=== PATIENT | female | born 1995 | race Caucasian/White ===

== ENCOUNTER → 2017-11-01 | Outpatient (CLI) | payer BC ==
[2016-05-17 16:21] VITALS: BMI 35.1
[~2017-11-01] MED LIST: Benzocaine 60 ML TP; DEPRESSION MED PO; DICY20TA70 PO; DOCU240C67 PO; FLUO-177 PO; IBUP800T37 PO; IRON18TA2 PO; Lanolin TP; PANT40TA65 PO; PREN1TAB50 PO; TUCKS TOP; VENL37.594 PO
== END ==
LOC: LAB 15:11
PROVIDERS: ATTEND Nurse Practitioner Pediatrics
DX: Z32.00 Encounter for pregnancy test, result unknown (principal)
CPT/HCPCS: 81025

== ENCOUNTER 2017-11-26 19:58 | Emergency (ER) | payer BC ==
[2016-05-17 16:21] VITALS: Ht 165.1 cm; Wt 104.8 kg
[~2017-11-26] VITALS: Ht 165.1 cm; Wt 104.8 kg
[2017-11-26 20:03] VITALS: BP 119/72
[2017-11-26] MEDS ORDERED: PREN-127 PO (20:05)
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
[2017-11-26] MEDS ORDERED: AMOX-559 PO (20:27)
== END 2017-11-26 20:45 | disposition home or self-care (01) ==
LOC: ER 20:11
DX: J32.0 Chronic maxillary sinusitis (principal)
CPT/HCPCS: 99281

== ENCOUNTER 2017-11-28 08:21 | Emergency (ER) | payer BC ==
[2016-05-17 16:21] VITALS: Ht 165.1 cm; Wt 104.8 kg
[~2017-11-28] VITALS: Ht 165.1 cm; Wt 104.8 kg
[~2017-11-28 08:21] MED LIST changes: +AMOX-559 PO; +PREN-127 PO
--- NOTE | 2017-11-28 08:36 | ER Report ---
History and Physical Time Seen By MD: 08:34 Hx. of Stated Complaint: BEING TREATED WITH AMOXICILLIN FOR SINUSITIS SINCE YESTERDAY. WOKE UP THIS AM WITH LEFT EYE AND CHEEK SWELLING. HPI/ROS CHIEF COMPLAINT: Left-sided facial swelling HISTORY OF PRESENT ILLNESS: Patient was seen in the emergency department yesterday started on Augmentin for a sinusitis. Patient is also approximately 11 weeks with no complications of at this time. This morning the patient woke up and noticed worsening swelling to the left side of the face. He is now also leaking some serous fluid to that area. Pain with leaning forward she denies any dental pain but does say it "hurts to chew on her left side" REVIEW OF SYSTEMS: ENT: left sided facal pain and erythema Respiratory: No cough, no dyspnea. Cardiovascular: No chest pain, no palpitations. Gastrointestinal: No vomiting, no abdominal pain. Musculoskeletal: No back pain. Allergies: Coded Allergies: cat dander (Verified Allergy, Unknown, 11/26/17) Home Meds Active Scripts Amoxicillin/Pot Clav 875-125 Mg Tab (AUGMENTIN 875-125 TABLET) 1 Each Tablet, 1 TAB PO Q12H for 10 Days, #20 TAB Prov:YURY WARREN MD 11/26/17 Reported Medications Vits W-Ca,Fe,Fa(<1MG) ( VITAMINS) 1 Each Tablet, 1 EACH PO DAILY, TAB 11/26/17 Discontinued Reported Medications Venlafaxine Hcl (EFFEXOR XR) 37.5 Mg Cap.er.24h, 37.5 MG PO QODAY 01/12/17 Fluoxetine Hcl (FLUOXETINE HCL) 20 Mg Capsule, 20 MG PO QDAY, CAPSULE 01/12/17 Discontinued Scripts Dicyclomine Hcl (DICYCLOMINE HCL) 20 Mg Tablet, 1 TAB PO ACHS, #60 TAB 1 Refill Prov:DANUTA DELGADO MD 04/04/17 Pantoprazole Sodium (PANTOPRAZOLE SODIUM) 40 Mg Tablet.dr, 1 TAB PO BID, #60 TAB 1 Refill Prov:DANUTA DELGADO MD 04/04/17 Past Medical/Surgical History Approximately 11 weeks Hx Smoking: Yes Smoking Status: Never Smoker Exposure to Second Hand Smoke?: No Hx Substance Use Disorder: No Hx Alcohol Use: No Constitutional Vital Sign - Last 24 Hours 11/28/17 08:25 Temp 98.3 Pulse 99 Resp 16 B/P (MAP) 130/95 Pulse Ox 96 O2 Delivery Room Air Physical Exam General Appearance: The patient is alert, has no immediate need for airway protection and no current signs of toxicity. Eyes: Pupils equal and round no injection. EOMI Face: swelling over the left maxillary sinus with overlying erythema and tenderness to palpation, small amount of honeycolored fluid leaking from center of erythema Sinus: frontal and right maxilla nontender; both right and left sinuses transiluminate. Nares: clear Respiratory: Chest is non tender, lungs are clear to auscultation. Cardiac: regular rate and rhythm Gastrointestinal: Abdomen is soft and non tender, no masses, bowel sounds normal. Musculoskeletal: Neck: Neck is supple and non tender. Medical Decision Making ED Course/Re-evaluation ED Course 11/28/2017 8:54:[address] Hood who is our in-house early childhood director. He suspects the patient does have a left maxillary sinusitis with overlying cellulitis. In addition to the Bactrim and Augmentin he recommends 1 g of Rocephin which we will give intramuscularly. He will further see the patient later this afternoon patient is instructed to follow-up his office at 1:45 PM for a 2:15 appointment. Decision to Disposition Date: Nov 28, 2017 Decision to Disposition Time: 08:55 Depart Departure Latest Vital Signs Vital Signs Date Time Temp Pulse Resp B/P (MAP) Pulse Ox O2 Delivery O2 Flow Rate FiO2 11/28/17 08:25 98.3 99 16 130/95 96 Room Air Impression: Primary Impression: Sinusitis, acute maxillary Condition: Improved Referrals: DYLON HOOD JR, MD Follow up today at 1:45 Patient Instructions: Sinusitis (ED) Additional Instructions: Follow up with Dr Hood at 1:45 PM today in his office Take all your antibiotics as directed. Problem Qualifiers Primary Impression: Sinusitis, acute maxillary Recurrence: non-recurrent Qualified Codes: J01.00 - Acute maxillary sinusitis, unspecified JERICHO SHARMA MD Nov 28, 2017 08:36
[2017-11-28] MEDS ORDERED: AMOX/CLAV 875 MG TAB PO ONE (08:50)
[2017-11-28] MEDS ORDERED: TRIMETH/SULFA DS 160-800MG TAB PO ONE (08:50)
[2017-11-28] MEDS ORDERED: cefTRIAXone 1 GM VIAL IM ONE (09:00)
[2017-11-28] MEDS ORDERED: LIDOCAINE 1% MDV 200 MG/20 ML INJ ONE (09:00)
[2017-11-28 09:21] VITALS: BP 115/71
[2017-11-28] MEDS ORDERED: SULF-198 PO (16:55)
== END 2017-11-28 09:19 | disposition home or self-care (01) ==
LOC: ER 08:35
DX: O26.892 Other specified pregnancy related conditions, second trimester (principal); Z3A.11 11 weeks gestation of pregnancy; J01.00 Acute maxillary sinusitis, unspecified
CPT/HCPCS: 96372; 99282; J0696; J2001

== ENCOUNTER 2017-11-29 08:30 | Inpatient (IN) | payer BC, OTHER ==
[~2017-11-29] VITALS: Ht 165.1 cm; Wt 114.3 kg
[~2017-11-29 08:30] MED LIST changes: +SULF-198 PO
[2017-11-29] MEDS ORDERED: NS(*) 0.9% 1000 ML BAG 1,000 ML IV ONE (08:32)
[2017-11-29] MEDS ORDERED: AMPICILLIN/SULBACT (*) 3 GM VL 3 GM in NS(*) 0.9% 100 ML BAG 100 ML IVPB ONE (08:35)
[2017-11-29 09:00] LABS: PLATELET COUNT, AUTOMATED 222 K/uL (150-450)
[2017-11-29] MEDS ORDERED: DIPHTH/TETANUS/ACEL. PERTUSSIS IM ONLY ONE (09:00)
--- NOTE | 2017-11-29 10:21 | RADIOLOGY IMAGING REPORT ---
FACILITY: [facility] [place] PATIENT NAME: Brigitte Moss : 1995 MR: [id number] V: [id number] EXAM DATE: ORDERING PHYSICIAN: JERICHO SHARMA TECHNOLOGIST: Location: [facility] Patient: Brigitte Moss : 1995 Visit/Account:[id number] Date of Sevice: 11/29/2017 EXAMINATION: CT of the Paranasal Sinuses HISTORY: Worsening sinusitis. TECHNIQUE: Contiguous axial images were obtained through the paranasal sinuses without intravenous c ontrast administration. Coronal and sagittal reformatted images were obtained from the axial source d jose ramon. One of the following dose optimization techniques was utilized in the performance of this exam: Autom ated exposure control; adjustment of the mA and/or kV according to the patient's size; or use of an i terative reconstruction technique. Specific details can be referenced in the facility's radiology C T exam operational policy. COMPARISON: None. FINDINGS: Maxillary sinuses: Mild mucosal thickening in the bilateral maxillary sinuses. Otherwise negative. Frontal sinuses: Negative. Ethmoid air cells: Negative. Sphenoid sinuses: Dominant right sphenoid sinus. Mild mucosal thickening in the left sphenoid sinus. Ostiomeatal units: Patent. Nasal septum / nasal cavity: Rightward nasal septal deviation. Orbits: Negative. Visualized intracranial contents/soft tissues: Negative. TMJs: Negative. IMPRESSION: 1. Mild mucosal thickening in the maxillary sinuses and left sphenoid sinus. The paranasal sinuses ar e otherwise clear. 2. Rightward nasal septal deviation. Report Dictated By: Benson Joseph MD at 11/29/2017 10:13 AM Report E-Signed By: Benson Joseph MD at 11/29/2017 10:17 AM WSN:[email or web address]
--- NOTE | 2017-11-29 10:32 | ER Report ---
History and Physical Time Seen By MD: 09:00 Hx. of Stated Complaint: infection in face not improving with antibiotics HPI/ROS HPI/ROS CHIEF COMPLAINT: Left-sided facial swelling HISTORY OF PRESENT ILLNESS: Patient was seen in the emergency department yesterday started on Bactrim in addition to augmentin for a sinusitis and left facial cellulitis. Patient is also approximately 11 weeks with no complications of at this time. This morning the patient woke up and noticed again worsening swelling to the left side of the face. She was followed in ENT office by Dr. Hood who referred her to the emergency department for worsening facial cellulitis. She continues to have pain to the left maxillary sinus with leaning forward she denies any dental pain but does say it "hurts to chew on her left side" REVIEW OF SYSTEMS: ENT: left sided facal pain and erythema Respiratory: No cough, no dyspnea. Cardiovascular: No chest pain, no palpitations. Gastrointestinal: No vomiting, no abdominal pain. Musculoskeletal: No back pain. Allergies: Coded Allergies: cat dander (Verified Allergy, Unknown, 11/29/17) Home Meds Active Scripts Sulfamethoxazole/Trimet 800-160 Mg Tab (BACTRIM DS TABLET) 1 Each Tablet, 1 TAB PO Q12H for 10 Days, #20 TAB Prov:DYLON HOOD JR, MD 11/28/17 Amoxicillin/Pot Clav 875-125 Mg Tab (AUGMENTIN 875-125 TABLET) 1 Each Tablet, 1 TAB PO Q12H for 10 Days, #20 TAB Prov:YURY WARREN MD 11/26/17 Reported Medications Vits W-Ca,Fe,Fa(<1MG) ( VITAMINS) 1 Each Tablet, 1 EACH PO DAILY, TAB 11/26/17 Discontinued Reported Medications Venlafaxine Hcl (EFFEXOR XR) 37.5 Mg Cap.er.24h, 37.5 MG PO QODAY 01/12/17 Fluoxetine Hcl (FLUOXETINE HCL) 20 Mg Capsule, 20 MG PO QDAY, CAPSULE 01/12/17 Discontinued Scripts Dicyclomine Hcl (DICYCLOMINE HCL) 20 Mg Tablet, 1 TAB PO ACHS, #60 TAB 1 Refill Prov:DANUTA DELGADO MD 04/04/17 Pantoprazole Sodium (PANTOPRAZOLE SODIUM) 40 Mg Tablet.dr, 1 TAB PO BID, #60 TAB 1 Refill Prov:DANUTA DELGADO MD 04/04/17 Past Medical/Surgical History 11 weeks Hx Smoking: Yes Smoking Status: Never Smoker Exposure to Second Hand Smoke?: No Hx Substance Use Disorder: No Hx Alcohol Use: No Constitutional Vital Sign - Last 24 Hours 11/29/17 11/29/17 11/29/17 08:33 08:36 09:00 Temp 98.2 Pulse 94 90 Resp 20 10 B/P (MAP) 123/67 (85) 123/67 Pulse Ox 95 97 O2 Delivery Room Air Intake and Output 11/29/17 11/29/17 11/30/17 15:00 23:00 07:00 Intake Total 100 ml Balance 100 ml Physical Exam Physical Exam General Appearance: The patient is alert, has no immediate need for airway protection and no current signs of toxicity. Eyes: Pupils equal and round no injection. EOMI Face: Worsening of swelling over the left maxillary sinus with overlying erythema and tenderness to palpation, small amount of honeycolored fluid leaking from center of erythema Sinus: Tenderness to palpation of the left maxillary sinus Nares: clear Respiratory: Chest is non tender, lungs are clear to auscultation. Cardiac: regular rate and rhythm Gastrointestinal: Abdomen is soft and non tender, no masses, bowel sounds normal. Musculoskeletal: Neck: Neck is supple Medical Decision Making Data Points Result Diagram: 11/29/17 0845 11/29/17 0845 Laboratory Hematology Test 11/29/17 08:45 11/29/17 10:12 Red Blood Count 4.39 M/uL (4.17-5.56) Mean Corpuscular Volume 85.6 fL (80.0-96.0) Mean Corpuscular Hemoglobin 30.0 pg (26.0-33.0) Mean Corpuscular Hemoglobin Concent 35.1 g/dL (32.0-36.0) Red Cell Distribution Width 13.3 % (11.5-14.5) Mean Platelet Volume 8.4 fL (7.2-11.1) Neutrophils (%) (Auto) 62.2 % (39.4-72.5) Lymphocytes (%) (Auto) 23.7 % (17.6-49.6) Monocytes (%) (Auto) 11.4 % (4.1-12.4) Eosinophils (%) (Auto) 2.2 % (0.4-6.7) Basophils (%) (Auto) 0.5 % (0.3-1.4) Nucleated RBC Relative Count (auto) 0.2 /100WBC Neutrophils # (Auto) 2.9 K/uL (2.0-7.4) Lymphocytes # (Auto) 1.1 K/uL (1.3-3.6) Monocytes # (Auto) 0.5 K/uL (0.3-1.0) Eosinophils # (Auto) 0.1 K/uL (0.0-0.5) Basophils # (Auto) 0.0 K/uL (0.0-0.1) Nucleated RBC Absolute Count (auto) 0.01 K/uL Sodium Level 134 mmol/L (137-145) Potassium Level 3.9 mmol/L (3.5-5.0) Chloride Level 105 mmol/L (98-107) Carbon Dioxide Level 17 mmol/L (22-31) Blood Urea Nitrogen 3 mg/dl (7-18) Creatinine 0.60 mg/dl (0.52-1.04) Glomerular Filtration Rate Calc > 60.0 Random Glucose 96 mg/dl (75-110) Calcium Level 9.1 mg/dl (8.4-10.2) Total Bilirubin 0.5 mg/dl (0.2-1.3) Aspartate Amino Transf (AST/SGOT) 17 U/L (0-35) Alanine Aminotransferase (ALT/SGPT) 28 U/L (0-56) Alkaline Phosphatase 82 U/L (0-126) C-Reactive Protein 5.0 mg/dl (<1.0) Total Protein 7.1 gm/dl (6.3-8.2) Albumin 4.0 g/dl (3.5-5.0) Urine Color Yellow Urine Clarity Clear Urine pH 6.0 pH (4.8-9.5) Urine Specific Charlton 1.025 Urine Protein Negative mg/dL (NEGATIVE) Urine Glucose (UA) Negative mg/dL (NEGATIVE) Urine Ketones 80 mg/dL (NEGATIVE) Urine Blood Negative (NEGATIVE) Urine Nitrite Negative (NEGATIVE) Urine Bilirubin Negative (NEGATIVE) Urine Urobilinogen Negative mg/dL (0.2-1.9) Urine Leukocyte Esterase Negative (NEGATIVE) Urine RBC None /HPF (0-2/HPF) Urine WBC 1 /HPF (0-5/HPF) Urine Squamous Epithelial Cells Many /LPF (</=FEW) Urine Bacteria Negative /HPF (NONE-FEW) Urine Mucus Few /HPF (NONE-FEW) Chemistry Test 11/29/17 08:45 11/29/17 10:12 White Blood Count 4.6 k/uL (4.5-11.0) Red Blood Count 4.39 M/uL (4.17-5.56) Hemoglobin 13.2 g/dL (12.0-16.0) Hematocrit 37.6 % (34.0-47.0) Mean Corpuscular Volume 85.6 fL (80.0-96.0) Mean Corpuscular Hemoglobin 30.0 pg (26.0-33.0) Mean Corpuscular Hemoglobin Concent 35.1 g/dL (32.0-36.0) Red Cell Distribution Width 13.3 % (11.5-14.5) Platelet Count 222 K/uL (150-450) Mean Platelet Volume 8.4 fL (7.2-11.1) Neutrophils (%) (Auto) 62.2 % (39.4-72.5) Lymphocytes (%) (Auto) 23.7 % (17.6-49.6) Monocytes (%) (Auto) 11.4 % (4.1-12.4) Eosinophils (%) (Auto) 2.2 % (0.4-6.7) Basophils (%) (Auto) 0.5 % (0.3-1.4) Nucleated RBC Relative Count (auto) 0.2 /100WBC Neutrophils # (Auto) 2.9 K/uL (2.0-7.4) Lymphocytes # (Auto) 1.1 K/uL (1.3-3.6) Monocytes # (Auto) 0.5 K/uL (0.3-1.0) Eosinophils # (Auto) 0.1 K/uL (0.0-0.5) Basophils # (Auto) 0.0 K/uL (0.0-0.1) Nucleated RBC Absolute Count (auto) 0.01 K/uL Glomerular Filtration Rate Calc > 60.0 Calcium Level 9.1 mg/dl (8.4-10.2) Total Bilirubin 0.5 mg/dl (0.2-1.3) Aspartate Amino Transf (AST/SGOT) 17 U/L (0-35) Alanine Aminotransferase (ALT/SGPT) 28 U/L (0-56) Alkaline Phosphatase 82 U/L (0-126) C-Reactive Protein 5.0 mg/dl (<1.0) Total Protein 7.1 gm/dl (6.3-8.2) Albumin 4.0 g/dl (3.5-5.0) Urine Color Yellow Urine Clarity Clear Urine pH 6.0 pH (4.8-9.5) Urine Specific Charlton 1.025 Urine Protein Negative mg/dL (NEGATIVE) Urine Glucose (UA) Negative mg/dL (NEGATIVE) Urine Ketones 80 mg/dL (NEGATIVE) Urine Blood Negative (NEGATIVE) Urine Nitrite Negative (NEGATIVE) Urine Bilirubin Negative (NEGATIVE) Urine Urobilinogen Negative mg/dL (0.2-1.9) Urine Leukocyte Esterase Negative (NEGATIVE) Urine RBC None /HPF (0-2/HPF) Urine WBC 1 /HPF (0-5/HPF) Urine Squamous Epithelial Cells Many /LPF (</=FEW) Urine Bacteria Negative /HPF (NONE-FEW) Urine Mucus Few /HPF (NONE-FEW) Urinalysis Test 11/29/17 10:12 Urine Color Yellow Urine Clarity Clear Urine pH 6.0 pH (4.8-9.5) Urine Specific Charlton 1.025 Urine Protein Negative mg/dL (NEGATIVE) Urine Glucose (UA) Negative mg/dL (NEGATIVE) Urine Ketones 80 mg/dL (NEGATIVE) Urine Blood Negative (NEGATIVE) Urine Nitrite Negative (NEGATIVE) Urine Bilirubin Negative (NEGATIVE) Urine Urobilinogen Negative mg/dL (0.2-1.9) Urine Leukocyte Esterase Negative (NEGATIVE) Urine RBC None /HPF (0-2/HPF) Urine WBC 1 /HPF (0-5/HPF) Urine Squamous Epithelial Cells Many /LPF (</=FEW) Urine Bacteria Negative /HPF (NONE-FEW) Urine Mucus Few /HPF (NONE-FEW) Microbiology Microbiology Date/Time Source Procedure Growth Status 11/29/17 09:10 Blood Peripheral Draw Blood Culture - Preliminary NO GROWTH SO FAR, SET LATE. REINCUBATED Resulted 11/29/17 08:45 Blood Peripheral Draw Blood Culture - Preliminary NO GROWTH SO FAR, SET LATE. REINCUBATED Resulted EKG/Imaging Imaging FACILITY: [facility] PATIENT NAME: Brigitte Moss : 1995 MR: [id number] V: [id number] EXAM DATE: ORDERING PHYSICIAN: JERICHO SHARMA TECHNOLOGIST: Location: [facility] [place] Patient: Brigitte Moss : 1995 Visit/Account:[id number] Date of Sevice: 11/29/2017 EXAMINATION: CT of the Paranasal Sinuses HISTORY: Worsening sinusitis. TECHNIQUE: Contiguous axial images were obtained through the paranasal sinuses without intravenous contrast administration. Coronal and sagittal reformatted images were obtained from the axial source data. One of the following dose optimization techniques was utilized in the performance of this exam: Automated exposure control; adjustment of the mA and/ or kV according to the patient's size; or use of an iterative reconstruction technique. Specific details can be referenced in the facility's radiology CT exam operational policy. COMPARISON: None. FINDINGS: Maxillary sinuses: Mild mucosal thickening in the bilateral maxillary sinuses. Otherwise negative. Frontal sinuses: Negative. Ethmoid air cells: Negative. Sphenoid sinuses: Dominant right sphenoid sinus. Mild mucosal thickening in the left sphenoid sinus. Ostiomeatal units: Patent. Nasal septum / nasal cavity: Rightward nasal septal deviation. Orbits: Negative. Visualized intracranial contents/soft tissues: Negative. TMJs: Negative. IMPRESSION: 1. Mild mucosal thickening in the maxillary sinuses and left sphenoid sinus. The paranasal sinuses are otherwise clear. 2. Rightward nasal septal deviation. Report Dictated By: Benson Joseph MD at 11/29/2017 10:13 AM Report E-Signed By: Benson Joseph MD at 11/29/2017 10:17 AM WSN:[id number] ED Course/Re-evaluation Clinical Indication for ER IV: Hydration, IV Access ED Course 11/29/2017 11:03:22 am patient with worsening facial cellulitis seen by Dr. Dylon Hood and sent to the emergency department for admission. I agree with worsening clinical condition. Because of the worsening condition I decided to perform a CT scan of the sinuses to look for any deep involvement or possible retro-orbital infection. CT scan just showed facial cellulitis. Plan at this time will be admission to medicine for IV antibiotics. Decision to Disposition Date: Nov 29, 2017 Decision to Disposition Time: 11:05 Depart Departure Latest Vital Signs Vital Signs Date Time Temp Pulse Resp B/P (MAP) Pulse Ox O2 Delivery O2 Flow Rate FiO2 11/29/17 09:00 90 10 97 11/29/17 08:36 98.2 123/67 Room Air Impression: Primary Impression: Facial cellulitis Condition: Condition Unchanged Disposition: Admitted from ER (To Nadine Guevara) JERICHO SHARMA MD Nov 29, 2017 10:32
[2017-11-29 11:52] VITALS: BP 116/65
[2017-11-29] MEDS ORDERED: ACETAMINOPHEN 325 MG TAB PO PRN (12:25)
--- NOTE | 2017-11-29 13:09 | History & Physical ---
History of Present Illness Chief Complaint Facial pain and swelling History of Present Illness 22yo female with PMHx significant for ~12 week who had onset of swelling, redness, pain over nose approximately 5 days ago. It was initially associated with an infected nose piercing on the right. She removed the piercing , but the symptoms began to spread over her nose and left face. She did not appreciate any fevers or chills. She has had some nausea with her and this has been unchanged. She denied any other GI or symptoms. She was evaluated in the ER and placed on Augmentin and subsequently had Bactrim added. She was also referred to Dr. Hood (ENT), who now felt she would probably require IV antibiotics. She was re-evaluated in the ER. CT scan showed facial swelling, but no orbit or significant sinus involvement. She was recommended for admission. History Problems: (1) History of cholecystectomy Status: Resolved (2) History of tonsillectomy Status: Resolved (3) Status: Acute Comment: approximately 12 weeks Home Meds Active Scripts Sulfamethoxazole/Trimet 800-160 Mg Tab (BACTRIM DS TABLET) 1 Each Tablet, 1 TAB PO Q12H for 10 Days, #20 TAB Prov:DYLON HOOD JR, MD 11/28/17 Amoxicillin/Pot Clav 875-125 Mg Tab (AUGMENTIN 875-125 TABLET) 1 Each Tablet, 1 TAB PO Q12H for 10 Days, #20 TAB Prov:YURY WARREN MD 11/26/17 Reported Medications Vits W-Ca,Fe,Fa(<1MG) ( VITAMINS) 1 Each Tablet, 1 EACH PO DAILY, TAB 11/26/17 Discontinued Reported Medications Venlafaxine Hcl (EFFEXOR XR) 37.5 Mg Cap.er.24h, 37.5 MG PO QODAY 01/12/17 Fluoxetine Hcl (FLUOXETINE HCL) 20 Mg Capsule, 20 MG PO QDAY, CAPSULE 01/12/17 Discontinued Scripts Dicyclomine Hcl (DICYCLOMINE HCL) 20 Mg Tablet, 1 TAB PO ACHS, #60 TAB 1 Refill Prov:DANUTA DELGADO MD 04/04/17 Pantoprazole Sodium (PANTOPRAZOLE SODIUM) 40 Mg Tablet.dr, 1 TAB PO BID, #60 TAB 1 Refill Prov:DANUTA DELGADO MD 04/04/17 Allergies: Coded Allergies: cat dander (Verified Allergy, Unknown, 11/29/17) Patient History: Patient reports no known family medical history. Hx Smoking: Yes Smoking Status: Never Smoker Exposure to Second Hand Smoke?: No Caffeine Intake: Soda Caffeine/Cups Per Day: 1+/DAY Hx Alcohol Use: No Hx Substance Use Disorder: No Social Drug Use: Never Review of Systems Constitutional: No Fever, No Chills, No Night Sweats Neurological: No Syncope, No Confusion, No Weakness Eyes: No Vision Change, No Loss of Vision ENT: Sinus Congestion, No Hearing Loss Cardiovascular: No Chest Pain, No Palpitations Respiratory: No Shortness of Breath, No Cough, No Wheezing Gastrointestinal: Nausea, No Diarrhea, No Constipation, No Hematemesis, No Hematochezia, No Melena, No Abdominal Pain Genitourinary: No Dysuria, No Hematuria, No Urinary Incontinence Musculoskeletal: No Pain, No Sprain, No Impaired Mobility Psychiatric: No Depression, No Anxiety Exam Vital Signs Vital Signs Date Time Temp Pulse Resp B/P (MAP) Pulse Ox O2 Delivery O2 Flow Rate FiO2 11/29/17 11:52 97.6 97 16 116/65 (82) 97 Room Air General Appearance: Alert, Awake Neuro: No Gross deficits Eyes: PERRLA ENT: Other (swelling/erythema on left face extending from supraorbital ridge to near left lip/laterally over malar eminence with area of apparent excoriation over middle portion) Neck: No Masses, Other (no adenopathy) Cardiovascular: Regular Rate and Rhythm, No Edema, No JVD Respiratory: Clear to Auscultation Chest: No Tenderness GI: Abd Soft and Non-Tender : No CVA Tenderness Lymph: No Adenopathy Extremities: Warm, Perfused Psych: Alert & Oriented X3 Medical Decision Making Data Points Result Diagram: 11/29/17 0845 11/29/17 0845 Item Value Date Time Albumin 4.0 g/dl 11/29/17 0845 Total Protein 7.1 gm/dl 11/29/17 0845 C-Reactive Protein 5.0 mg/dl H 11/29/17 0845 Alkaline Phosphatase 82 U/L 11/29/17 0845 Alanine Aminotransferase (ALT/SGPT) 28 U/L 11/29/17 0845 Aspartate Amino Transf (AST/SGOT) 17 U/L 11/29/17 0845 Total Bilirubin 0.5 mg/dl 11/29/17 0845 Calcium Level 9.1 mg/dl 11/29/17 0845 Urine Color Yellow 11/29/17 1012 Urine Clarity Clear 11/29/17 1012 Urine pH 6.0 pH 11/29/17 1012 Urine Specific [place] 1.025 11/29/17 1012 Urine Protein Negative mg/dL 11/29/17 1012 Urine Glucose (UA) Negative mg/dL 11/29/17 1012 Urine Ketones 80 mg/dL H 11/29/17 1012 Urine Blood Negative 11/29/17 1012 Urine Nitrite Negative 11/29/17 1012 Urine Bilirubin Negative 11/29/17 1012 Urine Urobilinogen Negative mg/dL 11/29/17 1012 Urine Leukocyte Esterase Negative 11/29/17 1012 Urine RBC None /HPF 11/29/17 1012 Urine WBC 1 /HPF 11/29/17 1012 Urine Squamous Epithelial Cells Many /LPF H 11/29/17 1012 Urine Bacteria Negative /HPF 11/29/17 1012 Urine Mucus Few /HPF 11/29/17 1012 Urine HCG, Qualitative Positive 11/01/17 1520 EKG / Imaging Imaging PATIENT NAME: Brigitte Moss : 1995 MR: [id number] V: [id number] EXAM DATE: ORDERING PHYSICIAN: JERICHO SHARMA TECHNOLOGIST: Location: [facility] Patient: Brigitte Moss : 1995 Visit/Account:[id number] Date of Sevice: 11/29/2017 EXAMINATION: CT of the Paranasal Sinuses HISTORY: Worsening sinusitis. TECHNIQUE: Contiguous axial images were obtained through the paranasal sinuses without intravenous contrast administration. Coronal and sagittal reformatted images were obtained from the axial source data. One of the following dose optimization techniques was utilized in the performance of this exam: Automated exposure control; adjustment of the mA and/ or kV according to the patient's size; or use of an iterative reconstruction technique. Specific details can be referenced in the facility's radiology CT exam operational policy. COMPARISON: None. FINDINGS: Maxillary sinuses: Mild mucosal thickening in the bilateral maxillary sinuses. Otherwise negative. Frontal sinuses: Negative. Ethmoid air cells: Negative. Sphenoid sinuses: Dominant right sphenoid sinus. Mild mucosal thickening in the left sphenoid sinus. Ostiomeatal units: Patent. Nasal septum / nasal cavity: Rightward nasal septal deviation. Orbits: Negative. Visualized intracranial contents/soft tissues: Negative. TMJs: Negative. IMPRESSION: 1. Mild mucosal thickening in the maxillary sinuses and left sphenoid sinus. The paranasal sinuses are otherwise clear. 2. Rightward nasal septal deviation. Report Dictated By: Benson Joseph MD at 11/29/2017 10:13 AM Report E-Signed By: Benson Joseph MD at 11/29/2017 10:17 AM WSN:[id number] Assessment and Plan Problems: (1) Facial cellulitis Status: Acute Assessment & Plan: It appears she has left facial cellulitis that has not responded to outpatient oral antibiotics. Will admit and place on IV Unasyn 3gm IV q6hrs. Cultures of blood have been obtained in the ER. Will check nasal swab to see if she is an MRSA carrier. If so, would add vancomycin (or if any other complicating factors). Watch closely. (2) Status: Acute Assessment & Plan: 12 weeks. Will need to review any medications for safety. Time Spent on Plan of Care: > 30 min Copies to: MICHAEL MICHELLE MD Venous Thromboembolism Antithrombotics Is Pt On Any Antithrombotics?: No (REI hose and ambulation) Exam Sepsis Risk: No Definite Risk Problem Qualifiers (1) : Weeks of gestation: 12 weeks Qualified Codes: Z3A.12 - 12 weeks gestation of YAZMIN GARCIA MD Nov 29, 2017 13:09
[2017-11-29] MEDS: NS(*) 0.9% 1000 ML BAG 1,000 ML IV PRN (13:12)
[2017-11-29 14:27] VITALS: BP 112/64
[2017-11-29] MEDS: AMPICILLIN/SULBACT (*) 3 GM VL 3 GM in NS(*) 0.9% 100 ML BAG 100 ML IVPB SCH ×2 (14:43→21:21)
[2017-11-29] MEDS ORDERED: PYRIDOXINE HCL 50 MG TAB PO ONE (17:45)
[2017-11-29] MEDS: DOXYLAMINE SUCCINATE 25 MG TAB PO PRN (18:09)
[2017-11-29 18:49] VITALS: BP 111/64
[2017-11-30] MEDS: AMPICILLIN/SULBACT (*) 3 GM VL 3 GM in NS(*) 0.9% 100 ML BAG 100 ML IVPB SCH ×4 (03:46→21:17)
[2017-11-30 04:34] VITALS: BP 124/53
[2017-11-30 06:05] LABS: PLATELET COUNT, AUTOMATED 212 K/uL (150-450)
[2017-11-30 08:23] VITALS: BP 113/71
[2017-11-30] MEDS: PYRIDOXINE HCL 50 MG TAB PO SCH (08:29)
[2017-11-30] MEDS: DOXYLAMINE SUCCINATE 25 MG TAB PO PRN (08:32)
[2017-11-30 08:48] VITALS: Ht 165.1 cm; Wt 114.3 kg
[2017-11-30] MEDS: NS(*) 0.9% 1000 ML BAG 1,000 ML IV PRN (10:55)
[2017-11-30 12:13] VITALS: BP 128/54
--- NOTE | 2017-11-30 13:40 | Hospitalist Progress Note ---
Subjective Progress Notes Subjective Ms. Moss is a 22yo female with PMHx significant for ~12 week who had onset of swelling, redness, pain over nose approximately 5 days ago. It was initially associated with an infected nose piercing on the right. She removed the piercing, but the symptoms began to spread over her nose and left face. She did not appreciate any fevers or chills. She has had some nausea with her and this has been unchanged. She denied any other GI or symptoms. She was evaluated in the ER and placed on Augmentin and subsequently had Bactrim added. She was also referred to Dr. Francis (ENT), who now felt she would probably require IV antibiotics. She was re-evaluated in the ER. CT scan showed facial swelling, but no orbit or significant sinus involvement. She was recommended for admission. 11/30: Patient is currently on IV Unasyn and responding better. Her facial redness and swelling has been improving since her admission. She is afebrile, hemodynamically and medically stable. Her nasa swab is still pending. Patient Complains of: Neurological: No: Confusion, Weakness, Dizziness Cardiovascular: No: Chest Pain, Palpitations Respiratory: No: Cough, Congestion, Shortness of Breath, Wheezing Gastrointestinal: No Nausea, No Vomiting Genitourinary: No Dysuria, No Hematuria Musculoskeletal: No: Pain, Sprain, Strain, Impaired Mobility Physical Exam Vital Signs Date Time Temp Pulse Resp B/P (MAP) Pulse Ox O2 Delivery O2 Flow Rate FiO2 11/30/17 12:13 98.6 77 16 128/54 (78) 98 Room Air Intake and Output 12/01/17 07:00 Intake Total 836 ml Balance 836 ml Intake Oral 600 ml IV Total 236 ml # Voids 1 General Appearance: Alert, Awake, No Acute Distress, Afebrile Neuro: No Gross deficits Eyes: PERRLA ENT: Normal, Other (Less facial edema and erythema ) Neck: No Masses Respiratory: No Respiratory Distress Integumentary: Skin Intact without Lesion / Mass Psych: Alert & Oriented X3, Appropriate Mood & Affect Result Diagram: 11/30/1752011/30/17520 Assessment and Plan Problems: (1) Facial cellulitis Status: Acute Assessment & Plan: It appears she has left facial cellulitis that has not responded to outpatient oral antibiotics. Will admit and place on IV Unasyn 3gm IV q6hrs. Cultures of blood have been obtained in the ER. Will check nasal swab to see if she is an MRSA carrier. If so, would add vancomycin (or if any other complicating factors). Watch closely. 2/1: She is responding to Unasyn, I will continue her Unasyn dose and check her nasal CX/S (2) Status: Acute Assessment & Plan: 12 weeks. Will need to review any medications for safety. 2/1: She is stable from point of view. No complaint of N/V etc. Time Spent on Plan of Care: < 30 min Copies to: MICHAEL MICHELLE MD Exam Sepsis Risk: No Definite Risk Problem Qualifiers (1) : Weeks of gestation: 12 weeks Qualified Codes: Z3A.12 - 12 weeks gestation of JM SILVA MD Nov 30, 2017 13:40
[2017-11-30 14:37] VITALS: BP 105/57
[2017-11-30] MEDS: PROCHLORPERAZINE MAL 5 MG TAB PO PRN (17:20)
[2017-11-30 19:16] VITALS: BP 122/71
[2017-11-30 23:43] VITALS: BP 129/48
[2017-12-01] MEDS: AMPICILLIN/SULBACT (*) 3 GM VL 3 GM in NS(*) 0.9% 100 ML BAG 100 ML IVPB SCH ×4 (03:05→20:29)
[2017-12-01 03:53] VITALS: BP 121/51
[2017-12-01] MEDS: PYRIDOXINE HCL 50 MG TAB PO SCH (09:28)
--- NOTE | 2017-12-01 14:09 | Hospitalist Progress Note ---
Subjective Progress Notes Subjective Ms. Moss is a 22yo female with PMHx significant for ~12 week who had onset of swelling, redness, pain over nose approximately 5 days ago. It was initially associated with an infected nose piercing on the right. She removed the piercing, but the symptoms began to spread over her nose and left face. She did not appreciate any fevers or chills. She has had some nausea with her and this has been unchanged. She denied any other GI or symptoms. She was evaluated in the ER and placed on Augmentin and subsequently had Bactrim added. She was also referred to Dr. Francis (ENT), who now felt she would probably require IV antibiotics. She was re-evaluated in the ER. CT scan showed facial swelling, but no orbit or significant sinus involvement. She was recommended for admission. 2: Patient is currently on IV Unasyn and responding better. Her facial redness and swelling has been improving since her admission. She is afebrile, hemodynamically and medically stable. Her nasa swab is still pending. 12/01: Patient is feeling better today. She is afebrile, hemodynamically and medically stable. She is on IV Unasyn for 48hours. She denies any complaint of facial asymmetry, visual changes etc. Patient Complains of: Neurological: No: Confusion, Weakness, Dizziness, Slurred Speech Cardiovascular: No: Chest Pain, Palpitations Respiratory: No: Cough, Shortness of Breath Gastrointestinal: No Nausea, No Vomiting Genitourinary: No Dysuria, No Hematuria Musculoskeletal: No: Pain, Sprain, Strain Physical Exam Vital Signs Date Time Temp Pulse Resp B/P (MAP) Pulse Ox O2 Delivery O2 Flow Rate FiO2 12/01/17 08:08 98.7 75 16 95 Room Air 12/01/17 03:53 121/51 (74) Intake and Output 12/02/17 07:00 Intake Total 400 ml Balance 400 ml Intake Oral 400 ml # Voids 1 General Appearance: Alert, Awake, No Acute Distress, Afebrile Neuro: No Gross deficits Eyes: PERRLA ENT: Normal, Other (L-sided facial edema and erythema has been significantly improved.) Neck: No Masses Cardiovascular: Regular Rate and Rhythm Respiratory: No Respiratory Distress GI: Soft and Non-Tender Extremities: Soft and Non Tender Integumentary: Skin Intact without Lesion / Mass Psych: Alert & Oriented X3, Appropriate Mood & Affect Result Diagram: 11/30/1752011/30/17520 Assessment and Plan Problems: (1) Facial cellulitis Status: Acute Assessment & Plan: It appears she has left facial cellulitis that has not responded to outpatient oral antibiotics. Will admit and place on IV Unasyn 3gm IV q6hrs. Cultures of blood have been obtained in the ER. Will check nasal swab to see if she is an MRSA carrier. If so, would add vancomycin (or if any other complicating factors). Watch closely. 2: She is responding to Unasyn, I will continue her Unasyn dose and check her nasal CX/S 2: I will continue her IV Unasyn for at least 72 hours and then change to Augmentin 875mg po bid for 11 days to complete 14 days course. (2) Status: Acute Assessment & Plan: 12 weeks. Will need to review any medications for safety. 2: She is stable from point of view. No complaint of N/V etc. 22: She is stable Central Venous Access Medical Necessity for Access: IV Access, Medication Administration Condition stable Time Spent on Plan of Care: < 30 min Copies to: MICHAEL MICHELLE MD Exam Sepsis Risk: No Definite Risk Problem Qualifiers (1) : Weeks of gestation: 12 weeks Qualified Codes: Z3A.12 - 12 weeks gestation of MJ SILVA MD Dec 01, 2017 14:09
[2017-12-01] MEDS ORDERED: NS(*) 0.9% 500 ML BAG 500 ML ONE (15:25)
--- NOTE | 2017-12-01 16:11 | ENT Progress Note ---
Subjective Progress Notes Subjective Patient reports she is improving on the IV abx. Had some straw colored fluid from her left cheek this morning. No new concerns. Physical Exam Vital Signs Date Time Temp Pulse Resp B/P (MAP) Pulse Ox O2 Delivery O2 Flow Rate FiO2 12/01/17 08:08 98.7 75 16 95 Room Air 12/01/17 03:53 121/51 (74) Intake and Output 12/02/17 07:00 Intake Total 400 ml Balance 400 ml Intake Oral 400 ml # Voids 1 General Appearance: Alert, Awake, No Acute Distress Neuro: No Gross deficits Eyes: Other (EOMI, sclerae white, conjunctivae pink) ENT: Other (decreased left cheek edema, symmetrical erythema with contralateral side, 5 mm eschar right cheek, no fluctuance, no purulence expressed) Result Diagram: 11/30/1752011/30/17520 Assessment and Plan Problems: (1) Facial cellulitis Status: Acute Assessment & Plan: Patient responding nicely to IV unasyn. I agree with plan to discharge home on po Augmentin. I am happy to see her in follow up in the office on Monday. My office will call her to schedule. Central Venous Access Medical Necessity for Access: IV Access, Medication Administration Time Spent: < 30 min Exam Sepsis Risk: No Definite Risk ERWIN BHATT,DYLON Carson MD Dec 01, 2017 16:11
[2017-12-01 16:27] VITALS: BP 113/72
[2017-12-01 19:09] VITALS: BP 121/73
[2017-12-02] MEDS: AMPICILLIN/SULBACT (*) 3 GM VL 3 GM in NS(*) 0.9% 100 ML BAG 100 ML IVPB SCH ×2 (03:15→08:56)
[2017-12-02 03:16] VITALS: BP 115/43
[2017-12-02 08:10] VITALS: BP 117/61
[2017-12-02] MEDS: PROCHLORPERAZINE MAL 5 MG TAB PO PRN (08:10)
[2017-12-02] MEDS: PYRIDOXINE HCL 50 MG TAB PO SCH (08:10)
--- NOTE | 2017-12-02 09:16 | Hospitalist Depart ---
Discharge Summary Reason for Hosp/Final Diag: (1) Facial cellulitis Status: Acute Hospital Course & Plan: She did present with left sided facial swelling and erythema, which likely started from a pimple on the left cheek. She was started on treatment with Unasyn, and the erythema quickly resolved. She was evaluated by Dr. Francis and will follow up with him in the clinic next week. She will discharge on oral Augmentin. (2) Status: Acute Hospital Course & Plan: She is on vitamins. She will follow up with [employer] as scheduled. Departure Latest Vital Signs Vital Signs 12/02/17 08:10 Temp 98.3 Pulse 90 Resp 16 B/P (MAP) 117/61 (79) Pulse Ox 95 O2 Delivery Room Air Weight (Pounds): 252 Result Diagram: 11/30/1752011/30/17520 Condition: Improved Discharge: Home, Self Care Discharge Instructions Home Meds Active Scripts Amoxicillin/Pot Clav 875-125 Mg Tab (AUGMENTIN 875-125 TABLET) 1 Each Tablet, 1 TAB PO Q12H for 10 Days, #20 TAB Prov:YURY WARREN MD 11/26/17 Reported Medications Vits W-Ca,Fe,Fa(<1MG) ( VITAMINS) 1 Each Tablet, 1 EACH PO DAILY, TAB 11/26/17 Discontinued Reported Medications Venlafaxine Hcl (EFFEXOR XR) 37.5 Mg Cap.er.24h, 37.5 MG PO QODAY 01/12/17 Fluoxetine Hcl (FLUOXETINE HCL) 20 Mg Capsule, 20 MG PO QDAY, CAPSULE 01/12/17 Discontinued Scripts Sulfamethoxazole/Trimet 800-160 Mg Tab (BACTRIM DS TABLET) 1 Each Tablet, 1 TAB PO Q12H for 10 Days, #20 TAB Prov:DYLON FRANCIS JR, MD 11/28/17 Dicyclomine Hcl (DICYCLOMINE HCL) 20 Mg Tablet, 1 TAB PO ACHS, #60 TAB 1 Refill Prov:DANUTA DELGADO MD 04/04/17 Pantoprazole Sodium (PANTOPRAZOLE SODIUM) 40 Mg Tablet.dr, 1 TAB PO BID, #60 TAB 1 Refill Prov:DANUTA DELGADO MD 04/04/17 Diet: Regular Activity: As Tolerated Copies to: MICHAEL MICHELLE MD Venous Thromboembolism Antithrombotics Is Pt On Any Antithrombotics?: No (REI hose and ambulation) Problem Qualifiers (1) : Weeks of gestation: 12 weeks Qualified Codes: Z3A.12 - 12 weeks gestation of DANUTA BOONE DO Dec 02, 2017 09:16
== END 2017-12-02 10:32 | disposition home or self-care (01) | DRG 781 ==
LOC: ER 08:41 → MED 11:13
PROVIDERS: ADMIT Internal Medicine; ATTEND Internal Medicine
DX: O99.711 Diseases of the skin and subcutaneous tissue complicating pregnancy, first trimester (principal); L03.211 Cellulitis of face; Z90.49 Acquired absence of other specified parts of digestive tract; Z3A.12 12 weeks gestation of pregnancy
CPT/HCPCS: 36415; 70486; 81001; 82040; 82247; 82310; 82374; 82435; 82565; 82947; 84075; 84132; 84155; 84295; 84450; 84460; 84520; 85025; 86140; 87040; 87071; 90715; 99284; J0295; J7030; J7040; J7050; Q0164

== ENCOUNTER 2018-04-16 18:17 | Outpatient (CLI) | payer MEDICAID ==
[~2018-04-16] VITALS: Ht 165.1 cm; Wt 110.7 kg
[2018-04-16 19:05] VITALS: BP 121/59; Ht 165.1 cm; Wt 110.7 kg
== END 2018-04-16 20:40 | disposition home or self-care (01) ==
LOC: OB 18:17 → UNDOADMOB 18:17 → L&D 18:17 → UNDODISOB 20:40 → EDSTATUS 04-17 14:26
PROVIDERS: ATTEND Obstetrics & Gynecology
DX: O36.8130 Decreased fetal movements, third trimester, not applicable or unspecified (principal); Z3A.31 31 weeks gestation of pregnancy
CPT/HCPCS: 59025; 82731; G0463; 99213; G0378; G0379

== ENCOUNTER 2018-05-24 12:50 | Observation (INO) | payer MEDICAID ==
[~2018-05-24] VITALS: Ht 165.1 cm; Wt 115.7 kg
[2018-05-26 14:25] VITALS: BP 121/71; Ht 165.1 cm; Wt 115.7 kg
[2018-05-26] MEDS ORDERED: APAP/HYDROCODONE 325/5 TAB PO PRN (15:25)
[2018-05-26] MEDS ORDERED: FAMOTIDINE(*) 20MG/50ML PREMIX 50 ML IVPB PRN (16:57)
[2018-05-26] MEDS ORDERED: OXYTOCIN 30 UNIT/D5LR 500 ML 500 ML IV PRN (16:57)
[2018-05-26] MEDS ORDERED: LR(*) 1000 ML BAG 1,000 ML IV SCH (16:57)
[2018-05-26] MEDS ORDERED: LIDOCAINE/SOD BICARB 8.4% SYR SC PRN (17:00)
[2018-05-26] MEDS ORDERED: fentaNYL CITR 100 MCG/2 ML AMP IVP PRN (17:00)
[2018-05-26] MEDS ORDERED: METOCLOPRAMIDE 10 MG/2 ML SDV IVP PRN (17:00)
[2018-05-26] MEDS ORDERED: LIDOCAINE 1% LOCAL 300 MG/30ML INJ PRN ×2 (17:00→17:10)
[2018-05-26] MEDS ORDERED: FLUSH 10 ML SYR IVP PRN (17:00)
[2018-05-26] MEDS ORDERED: TERBUTALINE SULF 1 MG/ML VIAL SUBQ PRN (17:00)
[2018-05-26] MEDS ORDERED: fentaNYL CITR 100 MCG/2 ML AMP IT PRN (17:05)
[2018-05-26] MEDS ORDERED: LIDO/EPI 2% MPF 1:200,000 20ML EPI PRN (17:05)
[2018-05-26] MEDS ORDERED: BUPIVACAINE 0.5% INJ 30ML VIAL EPI PRN (17:05)
[2018-05-26] MEDS ORDERED: FENTANYL/ROPIVACAINE 100 ML BAG EPI PRN (17:05)
[2018-05-26] MEDS ORDERED: BUPIVACAINE 0.25% MPF INJ EPI PRN (17:05)
[2018-05-26] MEDS ORDERED: LIDOCAINE/PF 2% 200MG/10ML AMP 200 MG/10 ML AMPUL EPI PRN (17:05)
[2018-05-26] MEDS ORDERED: EPIDURAL KEYS XX PRN (18:00)
[2018-05-26 18:43] LABS: PLATELET COUNT, AUTOMATED 199 K/uL (150-450)
== END 2018-05-26 22:45 | disposition home or self-care (01) ==
LOC: OB 12:50 → UNDOADMIN 12:50 → OB 05-26 14:06 → INTOOBSV 05-26 14:06
PROVIDERS: ADMIT Student in an Organized Health Care Education/Training Program; ATTEND Student in an Organized Health Care Education/Training Program
DX: O46.93 Antepartum hemorrhage, unspecified, third trimester (principal); Z3A.37 37 weeks gestation of pregnancy
CPT/HCPCS: 85025; 86850; 86900; 86901; G0378; G0379

== ENCOUNTER 2018-05-27 18:10 | Inpatient (IN) | payer MEDICAID ==
[~2018-05-27] VITALS: Ht 165.1 cm; Wt 115.7 kg
[2018-05-27 18:30] VITALS: BP 134/67; Ht 165.1 cm; Wt 115.7 kg
[2018-05-27] MEDS ORDERED: FAMOTIDINE(*) 20MG/50ML PREMIX 50 ML IVPB PRN (18:33)
[2018-05-27] MEDS ORDERED: OXYTOCIN 30 UNIT/D5LR 500 ML 500 ML IV PRN (18:33)
[2018-05-27] MEDS ORDERED: LIDOCAINE 1% LOCAL 300 MG/30ML INJ PRN (18:35)
[2018-05-27] MEDS ORDERED: METOCLOPRAMIDE 10 MG/2 ML SDV IVP PRN (18:35)
[2018-05-27] MEDS ORDERED: fentaNYL CITR 100 MCG/2 ML AMP IVP PRN (18:35)
[2018-05-27] MEDS ORDERED: FLUSH 10 ML SYR IVP PRN (18:35)
[2018-05-27] MEDS ORDERED: LIDOCAINE/SOD BICARB 8.4% SYR SC PRN (18:35)
[2018-05-27] MEDS ORDERED: FENTANYL/ROPIVACAINE 100 ML BAG EPI PRN (18:55)
[2018-05-27] MEDS ORDERED: BUPIVACAINE 0.25% MPF INJ EPI PRN (18:55)
[2018-05-27] MEDS ORDERED: fentaNYL CITR 100 MCG/2 ML AMP IT PRN (18:55)
[2018-05-27] MEDS ORDERED: LIDO/EPI 2% MPF 1:200,000 20ML EPI PRN (18:55)
[2018-05-27] MEDS ORDERED: BUPIVACAINE 0.5% INJ 30ML VIAL EPI PRN (18:55)
[2018-05-27] MEDS ORDERED: LIDOCAINE/PF 2% 200MG/10ML AMP 200 MG/10 ML AMPUL EPI PRN (18:55)
[2018-05-27] MEDS ORDERED: EPIDURAL KEYS XX PRN (19:00)
[2018-05-27] MEDS: LR(*) 1000 ML BAG 1,000 ML IV SCH ×2 (19:15→22:45)
[2018-05-27 19:16] LABS: PLATELET COUNT, AUTOMATED 186 K/uL (150-450)
--- NOTE | 2018-05-27 20:16 | Anesthesia OB Pre-Anes Eval ---
History of Present Illness Anesthesia Start Date: May 27, 2018 Anesthesia Start Time: 19:15 OB Anesthesia Diagnosis: spontaneous labor Current Complication: obesity Complications: None known EDC: Jun 16, 2018 : 2 Para: 1 Vital Signs: Vital Signs Date Time Temp Pulse Resp B/P (MAP) Pulse Ox O2 Delivery O2 Flow Rate FiO2 05/27/18 18:30 98.7 124 18 134/67 (89) 94 Room Air Pain Ratin Heart Tones: WNL Result Diagram: 05/27/18 1906 Height (Inches): 65.00 Weight (Pounds): 255 BMI Calculated: 42.43 Past Medical History Medical History: other (Bipolar) Surgical History: cholecystectomy Previous Anesthesia: general, epidural Attended Childbirth Classes?: No Hx Anesthesia Reactions: No Hx Family Anesthesia Reaction: No Home Meds Reported Medications Vits W-Ca,Fe,Fa(<1MG) ( VITAMINS) 1 Each Tablet, 1 EACH PO DAILY, TAB 11/26/17 Allergies: Coded Allergies: cat dander (Verified Allergy, Unknown, 11/29/17) Anesthesia OB ROS Neurological: No migraines/headaches, No seizures, No neuropathy ENT: Denies Tooth caps, Denies Loose teeth, Denies Chipped teeth, Denies Dentures, Denies Bridges, Denies Retainers, Denies Veneers, Denies Implants, Denies Tongue ring Pulmonary: No asthma, No smoker (pks/day/yrs) Airway Class: ll Cardiovascular ROS: No edema, No arrhythmia GI ROS: clear liquids Last Solids Date: May 27, 2018 Last Solids Time: 18:15 ROS: No Herpes, No STD(s), No Liver Disease, No Renal Disease Endocrine ROS: No diabetes, No gestational diabetes, No thyroid disorder Musculoskeletal ROS: No low back pain, No low back injury, No scoliosis ASA Classification: 2 Assessment and Plan Anesthesia Plan: CSE Assessment Past Medical, Surgical, Family and Obstetric Histories reviewed. Please see ACOG chart. Epidural anesthesia risks, complications and benefits explained to patient's satisfaction for labor and vaginal delivery and/or section. General anesthesia risks and benefits explained to patient's satisfaction. Reviewed last epidural experience with pt. No problems noted. Questions invited and none asked. Rates her pain scale as "10". Laughing with answers given to provider. MILKA RUANO CRNA May 27, 2018 20:16
--- NOTE | 2018-05-27 20:23 | Procedure Note ---
Anesthetic Placement Note Anesthesia Plan: CSE Permit for Anesthesia Signed: Yes Anesthesia Technique: Patient Sitting Anesthesia Prep: Chlorhexidine Interspace: L 3-4 Local Anesthetic: 1% Lidocaine, 25 Gauge Needle Amount Local - cc's: 2 Anesthesia Needle: 17g Touhy/Schliff Anesthesia Attempts: 1 Loss of Resistance: Air Depth of GIDEON (cm): 7 Epidural Needle Placement: No CSF, No Blood, No Parasthesia Intrathecal Needle: 27 Gauge Pencan Cerebral Spinal Fluid: Yes, Clear Catheter Insertion (cm): 10 Catheter Type: Joe - Spring Wound Epidural Dressing: Tegaderm, Tape, Adhesive Phenix Anesthesia Tray: Lot Number ([id number]), Reference Number ([id number]) Anesthesia Medications: Intrathecal Dose: mcg Fentanyl (15), mg Marcaine MPF (1.75), Time (1929) Epidural Test Dose: 1.5 Lido/Epi (1:200,000), Dose - mL (2), Time (1949), Negative Epidural Loading Dose: 0.2% Ropivicaine, With Fentanyl 2mcg/ml, Dose - ml (5), Time (1950) Epidural Infusion: 0.2% Ropivicaine, With Fentanyl 2mcg/ml, Start Time: (1950) Epidural Pump Setting: Bolus Dose - mL (5), Lockout - Minutes (20), Maintenance Rate - mL/hr (6), Maximum per Hour - mL (21) Comment: Vital signs stable. Patient comfortable and condition stable. Mild itching noted. Pt. obtained instant pain relief and felt no further contractions. MILKA RUANO CRNA May 27, 2018 20:23
--- NOTE | 2018-05-27 20:33 | Anesthesia Progress Note ---
Progress/Maintenance Anesthesia Note Date: May 27, 2018 Anesthesia Note Time: 20:20 Pain Intensity: 0 Pump: On Pump Rate (ML/HR): 6 Sensory Level: T-12 Motor Level: Bending Knees-Bilateral Assessment and Plan Assessment Called by RN, asking if she can give some ephedrine for low bp of 81/42. Immediately went to room and found pt.laying flat on her back. Assisted to turn to left side. BP retaken and found to be returning to normal no ephedrine given. MILKA RUANO CRNA May 27, 2018 20:33
--- NOTE | 2018-05-27 21:16 | History & Physical ---
History of Present Illness Age of Patient: 22 : 2 Para or TPAL: 1001 EDC per LMP: Jun 16, 2018 Estimated Gestational Age: 37.1 Chief Complaint Contractions History of Present Illness Pt is a 22 y/o @ 37-1/7 weeks gestation who presents to L&D for the second day in a row with a chief complaint of painful contractions. Pt was 3 cm yesterday and is now 5 cm with painful contractions every 2 minutes. Denies any loss of amniotic fluid. Occasional vaginal spotting. History Patient's Blood Type: O Positive Rubella Status: Immune Group B Strep Screen: Negative Obstetrical History: FAVD for poor maternal effort. Past Medical History: Cholecystectomy Bipolar Allergies: Coded Allergies: cat dander (Verified Allergy, Unknown, 11/29/17) Social History: Tobacco use but reports stopping once . Denies alcohol or recreational drug use. Family History: Patient reports no known family medical history. Med Rec Home Meds Reported Medications Vits W-Ca,Fe,Fa(<1MG) ( VITAMINS) 1 Each Tablet, 1 EACH PO DAILY, TAB 11/26/17 Review of Systems All Systems Reviewed/Normal: Yes, Except as Noted Constitutional: No Fever, No Weight Loss, No Weight Gain, No Chills, No Night Sweats, No Other Neurological: No Syncope, No Confusion, No Weakness, No Dizziness, No Slurred Speech, No Other Eyes: No Vision Change, No Loss of Vision, No Photophobia, No Other ENT: No Hearing Loss, No Sinus Congestion, No Sore Throat, No Ear Ache, No Tinnitus, No Other Cardiovascular: No Chest Pain, No Palpitations, No Orthostatic Hypotension, No Other Respiratory: No Shortness of Breath, No Cough, No Wheezing, No Other Gastrointestinal: No Nausea, No Vomiting, No Diarrhea, No Dysphagia, No Constipation, No Early Satiety, No Hematemesis, No Hematochezia, No Melena, No Abdominal Pain, No Other Genitourinary: No Dysuria, No Hematuria, No Urinary Incontinence, No Other Musculoskeletal: No Pain, No Sprain, No Strain, No Impaired Mobility, No Other Psychiatric: No Depression, No Anxiety, No Other Exam General Exam Vital Signs Vital Signs Date Time Temp Pulse Resp B/P (MAP) Pulse Ox O2 Delivery O2 Flow Rate FiO2 05/27/18 18:30 98.7 124 18 134/67 (89) 94 Room Air General Apperance: Alert/Awake/No Acute Distress Neuro: No Gross deficits Eyes: Normal Extraocular Movement & Vison, PERRLA ENT: Normal Cardiovascular: Regular Rate and Rhythm Respiratory: No Respiratory Distress, Clear to Auscultation Abdomen: Soft, Non-Tender, Non-Distended, Gravid - Non-Tender : Normal Musculoskeletal: No Weakness/Pain Extremities: No Cyanosis,Clubbing or Edema Integumentary: Skin Intact without Lesions or Rash Psychological: Alert & Oriented X3, Appropriate Mood & Affect Vaginal Discharge/Fluid?: Bloody Show Cervical Dialation: 5 Cervical Effacement (%): 80 Cervical Consistency: Soft Cervical Position: Anterior Station: -2 Presentation: Vertex Uterine Contractions(Q min): 2 Uterine Contraction Strength: Mild UC Resting Tone: Soft Fetus Feeling Movement?: Yes Estimated Weight(grams): 3000 Heart Tones: 140 Heart Tone Variabilty: Moderate FHT Accelerations: 15X15 FHT Decelerations: None FHT Category: I Medical Decision Making Data Points Result Diagram: 05/27/181905 Pre-Admit Course Medical Record Review: Yes VTE Prophylasis: Adult Deep Vein Thrombosis/Pulmonary: No Assessment and Plan 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 Admit for Labor. S/P amniotomy with epidural. Expect . (2) 37 weeks gestation of Status: Resolved NAA BERRIOS DO May 27, 2018 21:16
--- NOTE | 2018-05-27 23:03 | Anesthesia Progress Note ---
Progress/Maintenance Anesthesia Note Date: May 27, 2018 Anesthesia Note Time: 23:00 Pain Intensity: 7 Pump: On Pump Rate (ML/HR): 6 Sensory Level: T-12 Motor Level: Other (trying a practice push) Dilatation: 10 Position: Semi-Fowlers Drug Bolus: 0.5% Marcaine (5 ml), Other (85 mcgs Fentenyl) Assessment and Plan Assessment Called by RN that pt. is starting to feel contractions. Found pt. suddenly having difficulty tolerating contractions. Dilation now complete. Manual bolus given and encouraging pt. to try to relax in between contractions. MILKA RUANO CRNA May 27, 2018 23:03
[2018-05-27] MEDS ORDERED: HYDROCORTISONE 2.5% CR 30GM TB PR PRN (23:30)
[2018-05-27] MEDS ORDERED: LANOLIN OINT 7 GM TUBE TP PRN (23:30)
[2018-05-27] MEDS ORDERED: GLYCERIN/WITCH HAZEL LEAF 1 PK TOP PRN (23:30)
[2018-05-27] MEDS ORDERED: MAGNESIUM HYDROXIDE* 30ML UDCP PO PRN (23:30)
[2018-05-27] MEDS ORDERED: DIPHTH/TETANUS/ACEL. PERTUSSIS IM ONE (23:30)
[2018-05-27] MEDS ORDERED: BENZOCAINE 20% 60 ML BTL TP PRN (23:30)
[2018-05-27] MEDS ORDERED: ACETAMINOPHEN 325 MG TAB PO PRN (23:30)
[2018-05-27] MEDS ORDERED: MEASLES,MUMP,RUBELLA VAC 0.5ML SC ONE (23:30)
[2018-05-27] MEDS ORDERED: INFLUENZA VIRUS VAC 0.5 ML SYR IM ONLY ONE (23:30)
--- NOTE | 2018-05-27 23:38 | OB Delivery Note ---
Delivery Note Vaginal Delivery Type: Spont. Vaginal Delivery Delivery Date: May 27, 2018 Delivery Time: 23:11 Estimated Gestational Age(wks): 37.1 Length of Labor Stage I (hrs): 7 Length of Labor Stage II (hrs): 0.5 Labor Stage III (minutes): 6 Delivery Anesthesia: Epidural Infant Sex: Male Infant Weight (gms): 2975 (6#8oz) [place] Apgars: 1 Minute (8), 5 Minute (9) Repair Needed: Labial Estimated Blood Loss: 300 [employer] in Attendence: NAA Kapoor DO May 27, 2018 23:38
--- NOTE | 2018-05-27 23:45 | Anesthesia Progress Note ---
Progress/Maintenance Anesthesia Note Date: May 27, 2018 Anesthesia Note Time: 23:30 Pain Intensity: 2 Pump: Off Sensory Level: T-12 Dilatation: 10 Position: Semi-Fowlers Drug Bolus: 0.5% Marcaine (3 ml) Assessment and Plan Assessment Additional Marcaine 0.5% plain given while awaiting physician for delivery. Pt. tolerated delivery and repair very well. Empty syringe attached and RN agrees to remove with ambulation.Patient instructed the first ambulation is to be with help of nursing staff. Instructed to preform deep knee bends at bedside before walking. Anesthesia Stop Day: May 27, 2018 Anesthesia Stop Time: 23:30 MILKA RUANO CRNA May 27, 2018 23:45
[2018-05-28] MEDS: IBUPROFEN 800 MG TAB PO SCH ×3 (01:36→17:33)
[2018-05-28 04:00] VITALS: BP 124/63
[2018-05-28] MEDS ORDERED: LR(*) 1000 ML BAG 1,000 ML ONE (07:29)
[2018-05-28 07:50] VITALS: BP 122/68
[2018-05-28] MEDS: APAP/HYDROCODONE 325/5 TAB PO PRN ×2 (08:14→14:32)
--- NOTE | 2018-05-28 08:39 | OB/GYN Progress Note ---
OB Subjective Progress Notes Subjective Doing good this morning. Does report that she is tender. Lochia appropriate. Tolerating regular diet. Pain controlled with po medications. GI: NEG Nausea, NEG Vomiting, NEG Flatus, NEG Bowel Movement : Voiding Well, Vaginal Bleeding, Moderate Pain: Mild, Tolerating PO Pain Meds Neurological: No Headache, No Other Eyes: No Visual Disturbances OB Objective Physical Exam Vital Signs Date Time Temp Pulse Resp B/P (MAP) Pulse Ox O2 Delivery O2 Flow Rate FiO2 05/28/18 04:00 97.9 75 16 124/63 (83) 95 Room Air General Appearance: Alert/Awake/No Acute Distress Neurological: No Gross deficits Eyes: Normal Extraocular Movement & Vison, PERRLA Respiratory: No Respiratory Distress, Clear to Auscultation Abdomen: Soft, Non-Tender, Non-Distended, Fundus Firm Extremities: No Cyanosis,Clubbing or Edema Integumentary: Skin Intact without Lesions or Rash Psychological: Alert & Oriented X3, Appropriate Mood & Affect Result Diagram: 05/28/18 0633 Assessment and Plan 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 Continue current post plan. (2) 37 weeks gestation of Status: NAA Bautista DO May 28, 2018 08:39
[2018-05-28] MEDS: DOCUSATE CALCIUM 240 MG CAP PO SCH ×2 (09:07→21:25)
[2018-05-28] MEDS ORDERED: SIMETHICONE 80 MG CHEW CHEW PRN (10:10)
[2018-05-28 13:00] VITALS: BP 136/78
--- NOTE | 2018-05-28 14:14 | DELIVERY NOTE ---
DELIVERY DATE: May 27, 2018 SURGEON: Louis Kiran DO ANESTHESIA: Epidural. PREOPERATIVE DIAGNOSES 1. 22-year-old 2 para 1 at 37 and 1/7 weeks gestation. 2. Labor. POSTOPERATIVE DIAGNOSES 1. 22-year-old 2 para 1 at 37 and 1/7 weeks gestation. 2. Labor. 3. Delivered. PROCEDURE Spontaneous vaginal delivery with repair of bilateral labia lacerations. FINDINGS Live-born male infant at 2311 of May 27, 2018 with Apgars of 8 and 9, with weight 2975gm, three-vessel cord, intact placenta over bilateral labia lacerations. ESTIMATED BLOOD LOSS 300 mL. PATHOLOGY None. COMPLICATIONS None known. CONDITION Stable x two, mother and infant to remain in LDRP. COUNTS Correct for all needles, laps, sponges and instruments. LABOR SUMMARY Patient is a 22-year-old 2, para 1 at 37 and 1/7 weeks gestation who presented to Labor and Delivery for the second in a row. Yesterday, she was noted to be 3 cm, today upon presentation she was 5 cm, painfully lila every 2 minutes. With change from yesterday to today, she was admitted for labor. She was given an epidural. After her epidural, she underwent artificial rupture of amniotic membranes with copious amounts of clear amniotic fluid noted at time of rupture. Patient continued to progress spontaneously, eventually felt significant pressure, was checked, found to be 8 cm. Roughly 10 -15 minutes later, was found to be complete with significant urge to push. Nursing staff coached the patient on pushing, and after two trial pushes, the delivery team was called and assembled. DELIVERY SUMMARY Patient was placed in the dorsal lithotomy position, prepped and draped in the usual sterile manner. Upon maternal pushing, the 's head delivered in a controlled manner followed by the anterior shoulder with gentle downward motion , the posterior shoulder with gentle upward motion, with the remainder of the infant's body delivering spontaneously. Mouth and nose were bulb suctioned. After approximately 2 minutes post delivery, the cord was clamped x two and cut. Infant was placed on maternal abdomen, where it was vigorously cleaned and dried. Cord blood gas was obtained. Placenta delivered spontaneously with gentle cord traction. Oxytocin was infused to help with uterine tone. Uterus massaged, deemed firm. Upon inspection of the perineum, vagina, cervix and labia, it was noted that there were bilateral labia lacerations. These were repaired in multiple interrupted sutures using a 4-0 Vicryl. With lacerations repaired, they were noted to be hemostatic. A red rubber catheter was used to straight catheterize the patient with minimal urine output at straight cath. At this point, the patient was cleaned, labor bed was reassembled, and the mother and infant were allowed to continue to jay. NOAH
--- NOTE | 2018-05-28 14:33 | Anesthesia Post Eval Note ---
Anesthesia Post Eval Note Vital Signs Date Time Temp Pulse Resp B/P (MAP) Pulse Ox O2 Delivery O2 Flow Rate FiO2 05/28/18 13:00 98.2 77 16 136/78 (97) 05/28/18 07:50 95 Room Air Pt able to participate in Eval: Yes Cardiovascular Status: Satisfactory Respiratory Status: Satisfactory Pain Managment: Satisfactory PO Nausea/Vomiting: Satisfactory Temperature Management: Satisfactory Mental Status: Satisfactory, Alert, Oriented X3 Post-Op Hydration Status: Satisfactory, Tolerating PO Well, Voiding w/o Difficulty Anesthesia Type: CSE Anesthesia Tolerance: Tolerated procedure well without apparent anesthetic complications. LP site clear, no redness or edema. Denies headache or any residual paresthesia. Vital Signs Stable, Patient comfortable and condition stable. MILKA RUANO CRNA May 28, 2018 14:33
[2018-05-28 15:47] VITALS: BP 128/78
[2018-05-28 19:15] VITALS: BP 127/83
[2018-05-29] MEDS: IBUPROFEN 800 MG TAB PO SCH ×2 (01:28→09:25)
[2018-05-29 07:00] VITALS: BP 123/79
[2018-05-29] MEDS ORDERED: HYDR2TAB4 PO (08:21)
[2018-05-29] MEDS ORDERED: IBUP800T37 PO (08:21)
--- NOTE | 2018-05-29 08:23 | OB/GYN Discharge Summary ---
Discharge Summary Reason for Hosp/Final Diag: (1) care following vaginal delivery Hospital Course & Plan: Vaginal delivery on day 2, Pain controlled, Tolerating diet and activity. Baby . Normal lochia. Lates Vital Signs Vital Signs Date Time Temp Pulse Resp B/P (MAP) Pulse Ox O2 Delivery O2 Flow Rate FiO2 05/29/18 07:00 97.8 64 16 123/79 (94) 96 Room Air Weight (Pounds): 255 Result Diagram: 05/28/18 0633 Condition: Improved Discharge: Home, Self [facility] Meds Active Scripts Ibuprofen (IBUPROFEN) 800 Mg Tablet, 1 TAB PO Q8H, #30 TAB 0 Refills Take with food every 8 hours. Prov:DANUTA SEALS MD 05/29/18 Hydromorphone Hcl (HYDROMORPHONE HCL) 2 Mg Tablet, 2-4 MG PO Q4H for PAIN, #20 TAB 0 Refills Prov:DANUTA SEALS MD 05/29/18 Reported Medications Vits W-Ca,Fe,Fa(<1MG) ( VITAMINS) 1 Each Tablet, 1 EACH PO DAILY, TAB 11/26/17 [facility] [phone] Follow up in: 6 wks PP or PO Discharge Diet: As Tolerates Discharge Activity: Pelvic Rest Copies to: DANUTA SEALS MD, JOHN MD May 29, 2018 08:23
--- NOTE | 2018-05-29 08:24 | OB/GYN Progress Note ---
OB Subjective Progress Notes Subjective Pain controlled, Tolerating diet and activity. Baby . Normal lochia. GI: POS Flatus, NEG Nausea, NEG Vomiting : Voiding Well Pain: Mild OB Objective Physical Exam Vital Signs Date Time Temp Pulse Resp B/P (MAP) Pulse Ox O2 Delivery O2 Flow Rate FiO2 05/29/18 07:00 97.8 64 16 123/79 (94) 96 Room Air General Appearance: Alert/Awake/No Acute Distress Neurological: No Gross deficits Eyes: Normal Extraocular Movement & Vison, PERRLA Cardiovascular: Regular Rate and Rhythm Respiratory: No Respiratory Distress, Clear to Auscultation Abdomen: Soft, Non-Tender, Non-Distended, Fundus Firm Extremities: No Cyanosis,Clubbing or Edema, No Edema Integumentary: Skin Intact without Lesions or Rash Psychological: Alert & Oriented X3, Appropriate Mood & Affect Result Diagram: 05/28/18 0633 Assessment and Plan 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 Baby . Normal lochia. DANUTA SEALS MD May 29, 2018 08:24
[2018-05-29] MEDS: DOCUSATE CALCIUM 240 MG CAP PO SCH (09:25)
== END 2018-05-29 11:07 | disposition home or self-care (01) | DRG 775 ==
LOC: OB 18:10
PROVIDERS: ADMIT Student in an Organized Health Care Education/Training Program; ATTEND Student in an Organized Health Care Education/Training Program
PROC: 10E0XZZ Delivery of Products of Conception, External Approach (ICD-10-PCS; principal; 2018-05-29)
PROC: 0HQ9XZZ Repair Perineum Skin, External Approach (ICD-10-PCS; 2018-05-29)
PROC: 10907ZC Drainage of Amniotic Fluid, Therapeutic from Products of Conception, Via Natural or Artificial Opening (ICD-10-PCS; 2018-05-29)
DX: O99.214 Obesity complicating childbirth (principal); Z68.41 Body mass index [BMI] 40.0-44.9, adult; E66.9 Obesity, unspecified; O70.0 First degree perineal laceration during delivery; Z3A.37 37 weeks gestation of pregnancy; Z37.0 Single live birth
CPT/HCPCS: 36415; 85025; 85027; 86850; 86900; 86901; J2590; J3010; J7120; S0020

== ENCOUNTER 2018-10-05 23:26 | Emergency (ER) | payer SELFPAY ==
[2018-05-27 18:30] VITALS: Wt 113.4 kg
[~2018-10-05 23:26] MED LIST changes: +BUTA1CAP6 PO; +HYDR2TAB4 PO
[2018-10-05 23:32] VITALS: BP 121/84
--- NOTE | 2018-10-05 23:33 | ER Report ---
History and Physical Time Seen By MD: 23:33 HPI/ROS CHIEF COMPLAINT: Chest pain 4 days HISTORY OF PRESENT ILLNESS: 23-year-old female presents ambulatory to the ER complaining of right-sided chest pain for 4 days. She notes spreading across her chest to her left upper chest area. She notes no URI, sore throat fever or cough. She denies chest wall injury. She denies cardiac history. Patient denies leg swelling or calf pain. Patient denies GERD symptoms. REVIEW OF SYSTEMS: Respiratory: No cough, no dyspnea. Cardiovascular: As above Gastrointestinal: No vomiting, no abdominal pain. Musculoskeletal: No back pain. Allergies: Coded Allergies: cat dander (Verified Allergy, Unknown, 10/05/18) Home Meds Discontinued Reported Medications Vits W-Ca,Fe,Fa(<1MG) ( VITAMINS) 1 Each Tablet, 1 EACH PO DAILY, TAB 11/26/17 Discontinued Scripts Butalb/Acetaminophen/Caffeine (FIORICET 50-300-40) 1 Each Capsule, 1-2 EACH PO Q6H PRN for HEADACHE, #40 CAPSULE 1 Refill Prov:NAA BERRIOS DO 06/13/18 Ibuprofen (IBUPROFEN) 800 Mg Tablet, 1 TAB PO Q8H, #30 TAB 0 Refills Take with food every 8 hours. Prov:DANUTA SEALS MD 05/29/18 Reviewed Nurses Notes: Yes Old Medical Records Reviewed: Yes Hx Smoking: No Smoking Status: Never Smoker Exposure to Second Hand Smoke?: No Hx Substance Use Disorder: No Hx Alcohol Use: No Constitutional Vital Sign - Last 24 Hours 10/05/18 10/05/18 10/06/18 10/06/18 23:32 23:41 00:11 00:26 Temp 99.1 Pulse 97 95 102 89 Resp 16 7 9 15 B/P (MAP) 121/84 Pulse Ox 98 97 97 97 O2 Delivery Room Air Physical Exam General Appearance: patient is alert, has no immediate need for airway protection and no current signs of toxicity. Vital signs stable, afebrile, pulse ox normal, no acute distress HEENT: Pupils equal and round no injection. TMs normal, oropharynx without redness or exudate, mucous. Membranes are moist Respiratory: Chest is non tender, lungs are clear to auscultation. No chest wall tenderness Cardiac: regular rate and rhythm, no murmur Gastrointestinal: Abdomen is soft and non tender, no masses, bowel sounds normal. Musculoskeletal: Neck: Neck is supple and non tender. No lymphadenopathy Extremities have full range of motion and are non tender. No edema, no calf tenderness Skin: No rashes or lesions. DIFFERENTIAL DIAGNOSIS: After history and physical exam differential diagnosis was considered for chest pain including but not limited to myocardial ischemia, pericarditis pulmonary embolus, chest wall pain, pleural inflammation and pulmonary infectious causes. Medical Decision Making EKG/Imaging EKG Interpretation 12 lead EK Rhythm: normal sinus rhythm [place]: normal QRS: normal ST segments: normal, no evidence of ischemia or dysrhythmia Imaging X-ray: Two-view chest x-ray was obtained. I viewed the images myself on the PACS system. My interpretation of the images is: No infiltrate, no effusion, normal mediastinum. The radiologist interpretation had no clinically significant variation from this interpretation. ED Course/Re-evaluation ED Course Patient was admitted to an examination room. H&P was done. The differential diagnosis was considered. On clinical examination. Patient has dull chest wall pain. She notes mild increase with deep inspiration and movement. She's not been sick recently. Patient recalls no trauma. An EKG and chest x-ray were performed which were unremarkable. Patient was advised to conservative treatment plan of ibuprofen 600 mg 3 times daily. Patient was also advised to take Prilosec 20 mg per day for 2 weeks. She is advised to follow-up with pr imary care if unimproved in 3-5 days. Decision to Disposition Date: Oct 06, 2018 Decision to Disposition Time: 00:28 Depart Departure Latest Vital Signs Vital Signs Date Time Temp Pulse Resp B/P (MAP) Pulse Ox O2 Delivery O2 Flow Rate FiO2 10/06/18 00:26 89 15 97 10/05/18 23:32 99.1 121/84 Room Air Impression: Primary Impression: Chest wall pain Additional Impression: Gastroesophageal reflux disease Condition: Improved Disposition: HOME OR SELF-CARE Referrals: AINSLEY PACK MD, FARRUKH MD New Scripts No Active Prescriptions or Reported Meds Patient Instructions: Chest Wall Pain (ED), Gastroesophageal Reflux Disease (ED) Additional Instructions: Take Prilosec 20 mg per day. [id number] for one to 2 weeks Take ibuprofen 200 mg 3 tablets 3 times a day with food Follow-up with primary care if unimproved in 3-5 days. Problem Qualifiers Additional Impression: Gastroesophageal reflux disease Esophagitis presence: esophagitis presence not specified Qualified Codes: K21.9 - Gastro-esophageal reflux disease without esophagitis ONEYDA ADAMSON DO Oct 05, 2018 23:33
[2018-10-05] MEDS ORDERED: LIDOCAINE 2% VISC SLN 15ML UDC PO ONE (23:40)
[2018-10-05] MEDS ORDERED: MAG HYD/AL HYD/SIMETH 30ML UDC PO ONE (23:40)
--- NOTE | 2018-10-05 23:52 | EKG ---
FACILITY: [facility] PATIENT NAME: SVEN FRANZ : [id number] MR: [id number] V: [id number] EXAM DATE: ORDERING PHYSICIAN: ONEYDA ADAMSON TECHNOLOGIST: REENA Lawrence Reason : CP Blood Pressure : / mmHG Vent. Rate : 087 BPM Atrial Rate : 087 BPM P-R Int : 166 ms QRS Dur : 084 ms QT Int : 354 ms P-R-T Axes : 046 077 060 degrees QTc Int : 425 ms Normal sinus rhythm Normal ECG When compared with ECG of 26-MAY-2017 14:32, No significant change was found Confirmed by DANUTA BOONE ([id number]) on 10/06/2018 6:30:39 AM Referred By: Confirmed By:DANUTA BOONE
--- NOTE | 2018-10-06 00:19 | RADIOLOGY IMAGING REPORT ---
FACILITY: PATIENT NAME: Brigitte Branch : 1995 MR: [id number] V: [id number] EXAM DATE: ORDERING PHYSICIAN: ONEYDA ADAMSON TECHNOLOGIST: Location: [facility] [place] Patient: Brigitte Branch : 1995 Visit/Account:[id number] Date of Sevice: 10/05/2018 TWO VIEW CHEST 10/05/2018 11:37 PM. INDICATION: Chest pain for 3 days. RAD COMPARISON: Upper GI examination 01/16/2017, CT abdomen and pelvis 12/07/2016. FINDINGS: Lungs are well-expanded. The lungs are clear. No pneumothorax or pleural effusion. Pulmo nary vasculature is unremarkable. Heart size is normal. Cholecystectomy clips. IMPRESSION: No acute cardiopulmonary abnormality. Report Dictated By: Tommy Whitehead MD at 10/06/2018 12:12 AM Report E-Signed By: Tommy Whitehead MD at 10/06/2018 12:15 AM WSN:[id number]
== END 2018-10-06 00:39 | disposition home or self-care (01) ==
LOC: ER 23:34
DX: R07.89 Other chest pain (principal); K21.9 Gastro-esophageal reflux disease without esophagitis
CPT/HCPCS: 71046; 93005; 99284

== ENCOUNTER 2018-11-16 22:55 | Emergency (ER) | payer SELFPAY ==
[2018-05-27 18:30] VITALS: Wt 113.4 kg
[2018-11-16 22:59] VITALS: BP 140/86
--- NOTE | 2018-11-16 22:59 | ER Report ---
History and Physical Time Seen By MD: 22:58 HPI/ROS CHIEF COMPLAINT: Chest pain, back pain HISTORY OF PRESENT ILLNESS: 23-year-old female presents with sharp chest pain radiating to her upper back and neck. Patient is a mom with a 6-month-old and a 2-year-old. Her 6-month-old weighs 17 pounds. She has pain in her upper back and neck. It radiates around to the front of her chest. She notes increased pain with deep inspiration. She was seen here one month ago for an extensive evaluation. He was advised to conservative treatment plan. She's been taking Prilosec without improvement of her symptoms. She has not follow-up with primary care. Tonight the pain is slightly worse and she presents to the ER after calling her INDUSTRIAL CLEANING TECHNICIAN who advised her to come in for evaluation. She notes no fever, chills or productive cough. Patient denies leg swelling or calf pain. Patient notes no exacerbating or alleviating factors. Patient states she's been to chiropractor trying to get her upper back and neck adjusted without success. REVIEW OF SYSTEMS: Respiratory: No cough, no dyspnea. Cardiovascular: As above Gastrointestinal: No vomiting, no abdominal pain. Musculoskeletal: As above Allergies: Coded Allergies: cat dander (Verified Allergy, Unknown, 10/05/18) Home Meds Active Scripts Methocarbamol (ROBAXIN-750) 750 Mg Tablet, 1 TAB PO TID for muscle spasm relief, #20 Prov:ONEYDA ADAMSON DO 11/16/18 Reviewed Nurses Notes: Yes Old Medical Records Reviewed: Yes Hx Smoking: No Smoking Status: Never Smoker Exposure to Second Hand Smoke?: No Hx Substance Use Disorder: No Hx Alcohol Use: No Constitutional Vital Sign - Last 24 Hours 11/16/18 22:59 Temp 97.8 Pulse 101 Resp 16 B/P (MAP) 140/86 Pulse Ox 99 O2 Delivery Room Air Physical Exam General Appearance: The patient is alert, has no immediate need for airway protection and no current signs of toxicity. Vital signs stable, afebrile, pulse ox normal, mild distress HEENT: Pupils equal and round no injection. TMs normal, oropharynx without redness or exudate, mucous. Membranes are moist Respiratory: Chest is non tender, lungs are clear to auscultation.+ Chest wall tenderness, both front and back, along the left costosternal margin and the left paraspinous musculature Cardiac: regular rate and rhythm Gastrointestinal: Abdomen is soft and non tender, no masses, bowel sounds normal. Musculoskeletal: Neck: Neck is supple and non tender. Extremities have full range of motion and are non tender. Skin: No rashes or lesions. DIFFERENTIAL DIAGNOSIS: After history and physical exam differential diagnosis was considered for back pain including but not limited to muscular pain, herniated disc, spine fracture, intra-abdominal causes and urinary tract in fection. Costochondritis, somatic dysfunction of the thorax Medical Decision Making ED Course/Re-evaluation ED Course Patient was admitted to an examination room. H&P was done. The differential diagnoses was considered. Patient with chest and back pain, likely musculoskeletal from history and nature. Patient was seen here 6 weeks ago. An extensive evaluation. Patient's failed to follow-up with primary care. She's was unimproved on Prilosec. Patient also was advised ibuprofen for musculoskeletal pain. Decision to Disposition Date: Nov 16, 2018 Decision to Disposition Time: 23:07 Depart Departure Latest Vital Signs Vital Signs Date Time Temp Pulse Resp B/P (MAP) Pulse Ox O2 Delivery O2 Flow Rate FiO2 11/16/18 22:59 97.8 101 16 140/86 99 Room Air Impression: Primary Impression: Thoracic region somatic dysfunction Additional Impression: Chest wall pain Condition: Improved Disposition: HOME OR SELF-CARE Referrals: AINSLEY PACK MD New Scripts Methocarbamol (ROBAXIN-750) 750 Mg Tablet 1 TAB PO TID for muscle spasm relief, #20 Prov: ONEYDA ADAMSON DO 11/16/18 Patient Instructions: Thoracic Back Strain (ED) Additional Instructions: Take ibuprofen 200 mg 3 tablets 3 times a day with food Apply heating pad to your upper back and chest Use Robaxin muscle relaxant as prescribed All up with primary care Dr Pack next week for evaluation and referral for physical therapy if unimproved Problem Qualifiers ONEYDA ADAMSON DO Nov 16, 2018 22:59
[2018-11-16] MEDS ORDERED: METH-543 PO (23:09)
[2018-11-16] MEDS ORDERED: METHOCARBAMOL 500 MG TAB PO ONE (23:10)
== END 2018-11-16 23:16 | disposition home or self-care (01) ==
LOC: ER 23:03
DX: M99.02 Segmental and somatic dysfunction of thoracic region (principal); R07.89 Other chest pain
CPT/HCPCS: 99283

== ENCOUNTER → 2018-11-19 | Outpatient (REF) | payer SELFPAY ==
[2018-05-27 18:30] VITALS: BMI 42.4
[~2018-11-19] MED LIST changes: +METH-543 PO
== END ==
LOC: ZZSENDIN 11:29
PROVIDERS: ATTEND Family Medicine
DX: R07.9 Chest pain, unspecified (principal)
CPT/HCPCS: 85379

== ENCOUNTER 2019-01-19 14:22 | Emergency (ER) | payer SELFPAY ==
[2018-05-27 18:30] VITALS: Wt 117.9 kg
[~2019-01-19 14:22] MED LIST changes: +ABILIF5PT PO; +DOXY-229 PO
--- NOTE | 2019-01-19 14:28 | ER Report ---
History and Physical Time Seen By MD: 14:27 (JERICHO SHARMA MD) HPI/ROS CHIEF COMPLAINT: Referral for potential pseudotumor cerebri HISTORY OF PRESENT ILLNESS: Patient is a 23-year-old female who is presenting to the emergency department after ophthalmology exam today showed signs concerning for papilledema patient has been having headaches. There was concern for possible pseudotumor cerebri. She states over the last week she's been having headaches that are severe and atypical for her headaches. She also notices blurry vision with sudden changes in position such as standing. Currently she has no headache. She denies any nausea or vomiting or neck pain. She denies any back pain or double vision. REVIEW OF SYSTEMS: Constitutional: No fever, no chills. Eyes: No discharge. Blurry vision with changes of position ENT: No sore throat. Cardiovascular: No chest pain, no palpitations. Respiratory: No cough, no shortness of breath. Gastrointestinal: No abdominal pain, no vomiting. Musculoskeletal: No back pain. Skin: No rashes. Neurological: Headaches but none currently (JERICHO SHARMA MD) Allergies: Coded Allergies: cat dander (Verified Allergy, Unknown, 10/05/18) Home Meds Active Scripts Acetazolamide (ACETAZOLAMIDE) 500 Mg Capsule.er, 500 MG PO BID, #60 TAB Prov:AALIYAH VICENTE V DO 01/19/19 Reported Medications Sumatriptan Succinate (SUMATRIPTAN SUCCINATE) 100 Mg Tablet, 100 MG PO QDAY PRN for MIGRAINE 01/19/19 Aripiprazole (ABILIFY) 5 Mg Tablet, 2.5 MG PO QDAY, #10 TAB 12/31/18 Discontinued Scripts Doxycycline Monohydrate (DOXYCYCLINE MONOHYDRATE) 100 Mg Tablet, 100 MG PO BID, #20 TAB 0 Refills Prov:NAA BERRIOS DO 12/31/18 Methocarbamol (ROBAXIN-750) 750 Mg Tablet, 1 TAB PO TID for muscle spasm relief, #20 Prov:ONEYDA LEVINE DO 11/16/18 Past Medical/Surgical History Migraine headaches (JERICHO SHARMA MD) Hx Smoking: No Smoking Status: Never Smoker Exposure to Second Hand Smoke?: No Hx Substance Use Disorder: No Hx Alcohol Use: No (JERICHO SHARMA MD) Constitutional Vital Sign - Last 24 Hours 3/01/19/19 01/19/19 01/19/19 14:27 14:30 14:30 14:52 Temp 98.7 Pulse 98 90 Resp 12 B/P (MAP) 119/84 (96) 115/63 (80) 147/85 Pulse Ox 96 97 O2 Delivery Room Air 01/19/19 01/19/19 01/19/19 01/19/19 15:00 15:22 15:30 15:35 Pulse 89 87 B/P (MAP) 135/92 (106) 138/80 (99) Pulse Ox 97 94 01/19/19 01/19/19 01/19/19 01/19/19 17:21 17:25 17:30 17:35 Pulse 104 91 86 B/P (MAP) 136/121 (126) Pulse Ox 99 91 100 01/19/19 01/19/19 01/19/19 01/19/19 18:45 18:50 19:00 19:05 Pulse 98 89 B/P (MAP) 102/49 (66) 92/51 (65) Pulse Ox 93 93 01/19/19 01/19/19 01/19/19 01/19/19 19:10 19:40 19:55 20:10 Pulse 100 95 100 116 Pulse Ox 98 94 94 94 01/19/19 01/19/19 20:25 20:31 Pulse 109 B/P (MAP) 124/89 (101) Pulse Ox 93 (LAURORA,AALIYAH V DO) Physical Exam General Appearance: The patient is alert, has no immediate need for airway protection and no current signs of toxicity. Eyes: Pupils are dilated, funduscopic exam reveals papilledema to both eyes right greater than left, no evidence of hemorrhages or cotton-wool spots. Respiratory: Chest is non tender, lungs are clear to auscultation. Cardiac: regular rate and rhythm Gastrointestinal: Abdomen is soft and non tender, no masses, bowel sounds normal. Musculoskeletal: Neck: Neck is supple and non tender. Extremities have full range of motion and are non tender. Skin: No rashes or lesions. (JERICHO SHARMA MD) Medical Decision Making Data Points Result Diagram: 01/19/19 1457 01/19/19 1457 Laboratory Hematology Test 01/19/19 14:57 01/19/19 19:32 Red Blood Count 4.52 M/uL (4.17-5.56) Mean Corpuscular Volume 86.1 fL (80.0-96.0) Mean Corpuscular Hemoglobin 30.0 pg (26.0-33.0) Mean Corpuscular Hemoglobin Concent 34.8 g/dL (32.0-36.0) Red Cell Distribution Width 13.8 % (11.5-14.5) Mean Platelet Volume 8.5 fL (7.2-11.1) Neutrophils (%) (Auto) 76.5 % (39.4-72.5) Lymphocytes (%) (Auto) 16.0 % (17.6-49.6) Monocytes (%) (Auto) 6.2 % (4.1-12.4) Eosinophils (%) (Auto) 0.6 % (0.4-6.7) Basophils (%) (Auto) 0.7 % (0.3-1.4) Nucleated RBC Relative Count (auto) 0.1 /100WBC Neutrophils # (Auto) 6.1 K/uL (2.0-7.4) Lymphocytes # (Auto) 1.3 K/uL (1.3-3.6) Monocytes # (Auto) 0.5 K/uL (0.3-1.0) Eosinophils # (Auto) 0.0 K/uL (0.0-0.5) Basophils # (Auto) 0.1 K/uL (0.0-0.1) Nucleated RBC Absolute Count (auto) 0.00 K/uL Sodium Level 138 mmol/L (137-145) Potassium Level 4.1 mmol/L (3.5-5.0) Chloride Level 104 mmol/L (98-107) Carbon Dioxide Level 23 mmol/L (22-31) Blood Urea Nitrogen 18 mg/dl (7-18) Creatinine 0.90 mg/dl (0.52-1.04) Glomerular Filtration Rate Calc > 60.0 Random Glucose 108 mg/dl (75-110) Calcium Level 9.4 mg/dl (8.4-10.2) Total Bilirubin 0.3 mg/dl (0.2-1.3) Aspartate Amino Transf (AST/SGOT) 29 U/L (0-35) Alanine Aminotransferase (ALT/SGPT) 26 U/L (0-56) Alkaline Phosphatase 88 U/L (0-126) Total Protein 7.6 g/dl (6.3-8.2) Albumin 4.6 g/dl (3.5-5.0) Human Chorionic Gonadotropin, Qual Negative (NEGATIVE) CSF Appearance Clear (CLEAR) CSF Color Colorless (COLORLESS) CSF WBC 1 /mm3 (0-5) CSF RBC 0 /mm3 CSF Glucose 55 mg/dl CSF Total Protein 21 mg/dl (15-50) Chemistry Test 01/19/19 14:57 01/19/19 19:32 White Blood Count 8.0 k/uL (4.5-11.0) Red Blood Count 4.52 M/uL (4.17-5.56) Hemoglobin 13.6 g/dL (12.0-16.0) Hematocrit 38.9 % (34.0-47.0) Mean Corpuscular Volume 86.1 fL (80.0-96.0) Mean Corpuscular Hemoglobin 30.0 pg (26.0-33.0) Mean Corpuscular Hemoglobin Concent 34.8 g/dL (32.0-36.0) Red Cell Distribution Width 13.8 % (11.5-14.5) Platelet Count 301 K/uL (150-450) Mean Platelet Volume 8.5 fL (7.2-11.1) Neutrophils (%) (Auto) 76.5 % (39.4-72.5) Lymphocytes (%) (Auto) 16.0 % (17.6-49.6) Monocytes (%) (Auto) 6.2 % (4.1-12.4) Eosinophils (%) (Auto) 0.6 % (0.4-6.7) Basophils (%) (Auto) 0.7 % (0.3-1.4) Nucleated RBC Relative Count (auto) 0.1 /100WBC Neutrophils # (Auto) 6.1 K/uL (2.0-7.4) Lymphocytes # (Auto) 1.3 K/uL (1.3-3.6) Monocytes # (Auto) 0.5 K/uL (0.3-1.0) Eosinophils # (Auto) 0.0 K/uL (0.0-0.5) Basophils # (Auto) 0.1 K/uL (0.0-0.1) Nucleated RBC Absolute Count (auto) 0.00 K/uL Glomerular Filtration Rate Calc > 60.0 Calcium Level 9.4 mg/dl (8.4-10.2) Total Bilirubin 0.3 mg/dl (0.2-1.3) Aspartate Amino Transf (AST/SGOT) 29 U/L (0-35) Alanine Aminotransferase (ALT/SGPT) 26 U/L (0-56) Alkaline Phosphatase 88 U/L (0-126) Total Protein 7.6 g/dl (6.3-8.2) Albumin 4.6 g/dl (3.5-5.0) Human Chorionic Gonadotropin, Qual Negative (NEGATIVE) CSF Appearance Clear (CLEAR) CSF Color Colorless (COLORLESS) CSF WBC 1 /mm3 (0-5) CSF RBC 0 /mm3 CSF Glucose 55 mg/dl CSF Total Protein 21 mg/dl (15-50) (JULES,AALIYAH V DO) Microbiology Microbiology Date/Time Source Procedure Growth Status 01/19/19 19:32 Cerebrospinal Fluid Gram Stain - Final Resulted 01/19/19 19:32 Cerebrospinal Fluid CSF Culture - Preliminary NO GROWTH SO FAR, SET LATE. REINCUBATED Resulted (JULES,AALIYAH V ) ED Course/Re-evaluation Clinical Indication for ER IV: IV Access ED Course Patient with history and physical exam findings supporting pseudotumor cerebri. Plan at this time will be MRV without contrast; if negative for acute mass will suggest the patient lumbar puncture for diagnosis. Decision to Disposition Date: Jan 19, 2019 Decision to Disposition Time: 19:30 (JERICHO SHARMA MD) ED Course 01/19/2019 3:46:36 pm PT signed out pending MRV/MRI. EMLA cream placed on pts Lumbar spinal area prior to going to MRI to help with topical anesthesia for procedure when she gets back. 01/19/2019 1740 Pts MRI/MRV consistent with pseudotumor cerebri. Will obtain pressures with lumbar puncture 01/19/2019 1830 Procedure: Lumbar puncture. Indication: Headache. After verbal informed consent from patient explaining the risks including infection, bleeding, and neurologic damage, a lumbar puncture was performed after the patient was prepped and draped in the usual fashion. The back was anesthetized with 1% lidocaine. Three failed attempts were made by myself. Dr. Levine, emergency room provider, came in attempted with a longer needle to obtain fluid. Fluid was not able to be obtained. Pts habitus making procedure more difficult. Would prefer not to sit patient up due to would like to have opening pressures. Page out to Anesthesia, Dr. Toth to have him come in to make a final attempt. 01/19/2019 6:50:[address] Toth will attempt to come in to try to remove fluid and get pressure readings. If he is unsuccessful then we will treat patient for suspected pseudotumor. 01/19/2019 7:11:[address] Toth arrived. Decision to Disposition Date: Jan 19, 2019 (AALIYAH VICENTE DO) Depart Departure Latest Vital Signs Vital Signs Date Time Temp Pulse Resp B/P (MAP) Pulse Ox O2 Delivery O2 Flow Rate FiO2 01/19/19 20:31 124/89 (101) 01/19/19 20:25 109 93 01/19/19 14:30 98.7 12 Room Air (AALIYAH VICENTE DO) Impression: Primary Impression: Pseudotumor cerebri Condition: Stable Disposition: HOME OR SELF-CARE Referrals: MARIA R CAMARENA MD, CELINA F MD New Scripts Acetazolamide (ACETAZOLAMIDE) 500 Mg Capsule.er 500 MG PO BID, #60 TAB Prov: AALIYAH VICENTE DO 01/19/19 Patient Instructions: Idiopathic Intracranial Hypertension (ED) Additional Instructions: Your MRI/MRV does not show any vascular injury or tumor/mass that could be causing the increased pressure in your brain. It is most likely that it is being caused by something called Pseudotumor cerebri or idiopathic intracranial hypertension. We are starting you on medication (diuretic) to help relieve the pressure. Diamox (acetazolamide) 500mg twice a day. Recommend you follow up with family doctor and neurology. I provided you with the number for neurology. Diamox/acetazolamide will make carbonated drinks taste flat. That is normal for the medication. JERICHO SHARMA MD Jan 19, 2019 14:28 AALIYAH VICENTE DO Jan 19, 2019 15:48
[2019-01-19] MEDS ORDERED: SUMA100T33 PO (14:34)
[2019-01-19] MEDS ORDERED: LORazepam 2 MG/ML VIAL IVP ONE (14:50)
[2019-01-19 15:14] LABS: PLATELET COUNT, AUTOMATED 301 K/uL (150-450)
[2019-01-19] MEDS ORDERED: GADOBENATE 529MG/1ML 15ML VIAL IVP ONE (15:27)
[2019-01-19] MEDS ORDERED: LIDOCAINE/PRILOCAINE 5 GM TUBE TP ONE (15:35)
--- NOTE | 2019-01-19 17:38 | RADIOLOGY IMAGING REPORT ---
FACILITY[place] [facility] [place] NAME: Brigitte Branch : 1995 MR: [id number] V: [id number] EXAM DATE: ORDERING PHYSICIAN: JERICHO SHARMA TECHNOLOGIST: Location: [facility] [place] Patient: Brigitte Branch : 1995 Visit/Account:[id number] Date of Sevice: 01/19/2019 EXAMINATION: MR Brain without and with IV contrast MR venogram of the head without and with IV contrast HISTORY: Pseudotumor cerebri. Rule out mass. Papilledema, headache. COMPARISON: None. TECHNIQUE: Multiplanar, multisequence MR images of the brain were performed without and with IV contr ast. In addition, MRV imaging was performed. 7Z-[id number]-yz-flight angiography was performed in the danii nal and axial planes of the intracranial venous structures without and with IV gadolinium. CONTRAST: 15 mL IV MultiHance FINDINGS: Brain volume: Normal. Sagittal midline structures: Normal. Ventricles: Normal in caliber. Acute ischemic changes: None. Hemorrhage: None. Masses / edema: None. Enhancement: Normal. Castaneda-white: Negative. White matter lesions: Normal. Vessels: Normal. Extra-axial: None. Calvarium / scalp: Negative. Skull base: Negative. Visualized sinuses / orbits: There is slight flattening of the posterior globes. In addition the opt ic nerves appears slightly tortuous with some increased CSF attenuation within the optic nerve sheath s. This constellation of findings can be seen in the setting of pseudotumor cerebri in keeping with t he provided clinical history. The paranasal sinuses are unopacified. Visualized upper neck: Negative. MR venogram: Dural venous sinuses: Normal flow related enhancement. Deep cerebral veins: Normal flow related enhancement. Superficial cortical veins: Normal flow related enhancement. IMPRESSION: 1. No MR evidence of acute intracranial pathology or intracranial mass. 2. There are morphologic changes involving the globes and optic nerves which can be seen in the setti ng of pseudotumor cerebri, in keeping with the provided clinical history. 3. Unremarkable MR venogram, without evidence of cerebral venous occlusion. Report Dictated By: Miguel Francis MD at 01/19/2019 5:16 PM Report E-Signed By: Miguel Francis MD at 01/19/2019 5:34 PM [id number]
--- NOTE | 2019-01-19 17:38 | RADIOLOGY IMAGING REPORT ---
FACILITY: [facility] - [place] PATIENT NAME: Brigitte Branch : 1995 MR: [id number] V: [id number] EXAM DATE: ORDERING PHYSICIAN: AALIYAH VICENTE TECHNOLOGIST: Location: [facility] Patient: Brigitte Branch : 1995 Visit/Account:[id number] Date of Sevice: 01/19/2019 EXAMINATION: MR Brain without and with IV contrast MR venogram of the head without and with IV contrast HISTORY: Pseudotumor cerebri. Rule out mass. Papilledema, headache. COMPARISON: None. TECHNIQUE: Multiplanar, multisequence MR images of the brain were performed without and with IV contr ast. In addition, MRV imaging was performed. 0T-guha-sp-flight angiography was performed in the danii nal and axial planes of the intracranial venous structures without and with IV gadolinium. CONTRAST: 15 mL IV MultiHance FINDINGS: Brain volume: Normal. Sagittal midline structures: Normal. Ventricles: Normal in caliber. Acute ischemic changes: None. Hemorrhage: None. Masses / edema: None. Enhancement: Normal. Castaneda-white: Negative. White matter lesions: Normal. Vessels: Normal. Extra-axial: None. Calvarium / scalp: Negative. Skull base: Negative. Visualized sinuses / orbits: There is slight flattening of the posterior globes. In addition the opt ic nerves appears slightly tortuous with some increased CSF attenuation within the optic nerve sheath s. This constellation of findings can be seen in the setting of pseudotumor cerebri in keeping with t he provided clinical history. The paranasal sinuses are unopacified. Visualized upper neck: Negative. MR venogram: Dural venous sinuses: Normal flow related enhancement. Deep cerebral veins: Normal flow related enhancement. Superficial cortical veins: Normal flow related enhancement. IMPRESSION: 1. No MR evidence of acute intracranial pathology or intracranial mass. 2. There are morphologic changes involving the globes and optic nerves which can be seen in the setti ng of pseudotumor cerebri, in keeping with the provided clinical history. 3. Unremarkable MR venogram, without evidence of cerebral venous occlusion. Report Dictated By: Miguel Francis MD at 01/19/2019 5:16 PM Report E-Signed By: Miguel Francis MD at 01/19/2019 5:34 PM [id number]
[2019-01-19] MEDS ORDERED: fentaNYL CITR 100 MCG/2 ML AMP IVP ONE (18:30)
[2019-01-19] MEDS ORDERED: ACET500C35 PO ×2 (18:53→19:04)
[2019-01-19] MEDS ORDERED: acetaZOLAMIDE 250 MG TAB PO ONE (19:05)
[2019-01-19 20:31] VITALS: BP 124/89
== END 2019-01-19 20:37 | disposition home or self-care (01) ==
LOC: ER 14:34
DX: G93.2 Benign intracranial hypertension (principal)
CPT/HCPCS: 62270; 70553; 82945; 84157; 84703; 85025; 87070; 87205; 89050; 96374; 96375; 99285; A9577; J2060; J3010; 82040; 82247; 82310; 82374; 82435; 82565; 82947; 84075; 84132; 84155; 84295; 84450; 84460; 84520

== ENCOUNTER 2019-01-21 14:27 | Emergency (ER) | payer SELFPAY ==
[2018-05-27 18:30] VITALS: Wt 117.9 kg
[~2019-01-21 14:27] MED LIST changes: +ACET500C35 PO; +SUMA100T33 PO
[2019-01-21] MEDS ORDERED: diphenhydrAMINE 50 MG/ML VIAL IVP ONE (14:35)
[2019-01-21] MEDS ORDERED: NS(*) 0.9% 1000 ML BAG 1,000 ML IV ONE (14:35)
[2019-01-21] MEDS ORDERED: KETOROLAC 15 MG/ML VIAL IVP ONE (14:35)
[2019-01-21] MEDS ORDERED: METOCLOPRAMIDE 10 MG/2 ML SDV IVP ONE (14:35)
--- NOTE | 2019-01-21 14:35 | ER Report ---
History and Physical Time Seen By MD: 14:30 (JERICHO SHARMA MD) HPI/ROS CHIEF COMPLAINT: Headache HISTORY OF PRESENT ILLNESS: Diagnosis of pseudotumor cerebra reading based on elevated CSF pressure is on opening at around 40 cm of water. CSF chemistries and cultures are unremarkable. She states she was feeling improved until this morning she woke up with a headache that she feels is similar to her migraines. She does admit some positional component to it but states that it still hurts when she lays down. She is complaining of some soreness to her back where she had the multiple lumbar puncture attempts. She states that the pain basically is similar to her prior migraines. She does not feel much relief however when she is laying down but she does state that with coughing or sneezing she does feel a pounding sensation in her head and there does seem to be worsening when standing. REVIEW OF SYSTEMS: Constitutional: No fever, no chills. Eyes: No discharge. Blurry vision ENT: No sore throat. Cardiovascular: No chest pain, no palpitations. Respiratory: No cough, no shortness of breath. Gastrointestinal: No abdominal pain, no vomiting. Genitourinary: No hematuria. Musculoskeletal: No back pain. Skin: No rashes. Neurological: "Migraine". (JERICHO SHARMA MD) Allergies: Coded Allergies: cat dander (Verified Allergy, Unknown, 01/21/19) Home Meds Active Scripts Oxycodone Hcl/Acetaminophen (OXYCODONE-ACETAMINOPHEN 5-325) 1 Each Tablet, 1 EACH PO Q4-6H PRN for PAIN/HEADACHE, #15 TAB Prov:AALIYAH VICENTE V DO 01/21/19 Acetazolamide (ACETAZOLAMIDE) 500 Mg Capsule.er, 500 MG PO BID, #60 TAB Prov:AALIYAH VICENTE V DO 01/19/19 Reported Medications Aripiprazole (ABILIFY) 5 Mg Tablet, 2.5 MG PO QDAY, #10 TAB 12/31/18 Discontinued Reported Medications Sumatriptan Succinate (SUMATRIPTAN SUCCINATE) 100 Mg Tablet, 100 MG PO QDAY PRN for MIGRAINE 01/19/19 Past Medical/Surgical History Pseudotumor cerebra. (JERICHO SHARMA MD) Hx Smoking: No Smoking Status: Never Smoker Exposure to Second Hand Smoke?: No Hx Substance Use Disorder: No Hx Alcohol Use: No (JERICHO SHARMA MD) Constitutional Vital Sign - Last 24 Hours 01/21/19 14:30 Temp 97.4 Pulse 94 Resp 16 B/P (MAP) 93/75 Pulse Ox 96 O2 Delivery Room Air ([facility],AALIYAH V DO) Physical Exam General Appearance: The patient is alert, has no immediate need for airway protection and no current signs of toxicity. [ ] Eyes: Pupils equal and round no injection. Neck supple; no meningeal signs Respiratory: Chest is non tender, lungs are clear to auscultation. Cardiac: regular rate and rhythm [ ] Gastrointestinal: Abdomen is soft and non tender, no masses, bowel sounds normal. Musculoskeletal: Neck: Neck is supple and non tender. Extremities have full range of motion and are non tender. His [place] of the back reveals some bruising and pinpoint puncture holes without any secondary evidence of infection. No evidence of erythema or fluctuance felt on exam Skin: No rashes or lesions. = (JERICHO SHARMA MD) Medical Decision Making Data Points Result Diagram: 01/21/19 1441 01/21/19 1441 Laboratory Hematology Test 01/21/19 14:41 Red Blood Count 4.59 M/uL (4.17-5.56) Mean Corpuscular Volume 87.3 fL (80.0-96.0) Mean Corpuscular Hemoglobin 29.7 pg (26.0-33.0) Mean Corpuscular Hemoglobin Concent 34.0 g/dL (32.0-36.0) Red Cell Distribution Width 14.0 % (11.5-14.5) Mean Platelet Volume 8.6 fL (7.2-11.1) Neutrophils (%) (Auto) 74.6 % (39.4-72.5) Lymphocytes (%) (Auto) 17.8 % (17.6-49.6) Monocytes (%) (Auto) 6.2 % (4.1-12.4) Eosinophils (%) (Auto) 0.9 % (0.4-6.7) Basophils (%) (Auto) 0.5 % (0.3-1.4) Nucleated RBC Relative Count (auto) 0.0 /100WBC Neutrophils # (Auto) 5.4 K/uL (2.0-7.4) Lymphocytes # (Auto) 1.3 K/uL (1.3-3.6) Monocytes # (Auto) 0.4 K/uL (0.3-1.0) Eosinophils # (Auto) 0.1 K/uL (0.0-0.5) Basophils # (Auto) 0.0 K/uL (0.0-0.1) Nucleated RBC Absolute Count (auto) 0.00 K/uL Sodium Level 140 mmol/L (137-145) Potassium Level 3.9 mmol/L (3.5-5.0) Chloride Level 110 mmol/L (98-107) Carbon Dioxide Level 18 mmol/L (22-31) Blood Urea Nitrogen 15 mg/dl (7-18) Creatinine 0.90 mg/dl (0.52-1.04) Glomerular Filtration Rate Calc > 60.0 Random Glucose 111 mg/dl (75-110) Calcium Level 9.7 mg/dl (8.4-10.2) Chemistry Test 01/21/19 14:41 White Blood Count 7.2 k/uL (4.5-11.0) Red Blood Count 4.59 M/uL (4.17-5.56) Hemoglobin 13.6 g/dL (12.0-16.0) Hematocrit 40.0 % (34.0-47.0) Mean Corpuscular Volume 87.3 fL (80.0-96.0) Mean Corpuscular Hemoglobin 29.7 pg (26.0-33.0) Mean Corpuscular Hemoglobin Concent 34.0 g/dL (32.0-36.0) Red Cell Distribution Width 14.0 % (11.5-14.5) Platelet Count 320 K/uL (150-450) Mean Platelet Volume 8.6 fL (7.2-11.1) Neutrophils (%) (Auto) 74.6 % (39.4-72.5) Lymphocytes (%) (Auto) 17.8 % (17.6-49.6) Monocytes (%) (Auto) 6.2 % (4.1-12.4) Eosinophils (%) (Auto) 0.9 % (0.4-6.7) Basophils (%) (Auto) 0.5 % (0.3-1.4) Nucleated RBC Relative Count (auto) 0.0 /100WBC Neutrophils # (Auto) 5.4 K/uL (2.0-7.4) Lymphocytes # (Auto) 1.3 K/uL (1.3-3.6) Monocytes # (Auto) 0.4 K/uL (0.3-1.0) Eosinophils # (Auto) 0.1 K/uL (0.0-0.5) Basophils # (Auto) 0.0 K/uL (0.0-0.1) Nucleated RBC Absolute Count (auto) 0.00 K/uL Glomerular Filtration Rate Calc > 60.0 Calcium Level 9.7 mg/dl (8.4-10.2) (AALIYAH VICENTE DO) ED Course/Re-evaluation ED Course 01/21/2019 3:51:29 pm PT feeling much better. PT is due for her evening diamox which I will give the patient. Pt does have an appointment with Neurology this coming week in [place]. Decision to Disposition Date: Jan 21, 2019 Decision to Disposition Time: 15:53 (AALIYAH VICENTE DO) Depart Departure Latest Vital Signs Vital Signs Date Time Temp Pulse Resp B/P (MAP) Pulse Ox O2 Delivery O2 Flow Rate FiO2 01/21/19 14:30 97.4 94 16 93/75 96 Room Air (AALIYAH VICENTE DO) Impression: Primary Impression: Migraine Additional Impression: Pseudotumor cerebri Condition: Improved Disposition: HOME OR SELF-CARE Referrals: MARIA R CAMARENA MD New Scripts Oxycodone Hcl/Acetaminophen (OXYCODONE-ACETAMINOPHEN 5-325) 1 Each Tablet 1 EACH PO Q4-6H PRN for PAIN/HEADACHE, #15 TAB Prov: AALIYAH VICENTE DO 01/21/19 Departure Forms: ER Transition Record, Medications Reconciliation, Patient Portal Information Patient Instructions: Idiopathic Intracranial Hypertension (ED), Migraine Headache (ED) Additional Instructions: Follow up with neurology as scheduled. Continue your acetazolamide. Percocet one eveyr 4 hours as needed for severe pain. Problem Qualifiers Primary Impression: Migraine Migraine type: unspecified Status migrainosus presence: without status migrainosus Intractability: not intractable Qualified Codes: G43.909 - Migraine, unspecified, not intractable, without status migrainosus JERICHO SHARMA MD Jan 21, 2019 14:35 AALIYAH VICENTE DO Jan 21, 2019 15:57
[2019-01-21 15:04] LABS: PLATELET COUNT, AUTOMATED 320 K/uL (150-450)
[2019-01-21] MEDS ORDERED: acetaZOLAMIDE 250 MG TAB PO ONE (15:50)
[2019-01-21] MEDS ORDERED: OXYC-373 PO (15:56)
[2019-01-21 16:00] VITALS: BP 120/60
== END 2019-01-21 16:17 | disposition home or self-care (01) ==
LOC: ER 14:45
DX: G43.909 Migraine, unspecified, not intractable, without status migrainosus (principal); G93.2 Benign intracranial hypertension
CPT/HCPCS: 85025; 96361; 96374; 96375; 99284; J1200; J1885; J2765; J7030; 82310; 82374; 82435; 82565; 82947; 84132; 84295; 84520

== ENCOUNTER 2019-04-04 21:45 | Emergency (ER) | payer OTHER ==
[2018-05-27 18:30] VITALS: Wt 113.4 kg
[~2019-04-04 21:45] MED LIST changes: +OXYC-373 PO
--- NOTE | 2019-04-04 21:53 | ER Report ---
History and Physical Time Seen By MD: 21:52 HPI/ROS CHIEF COMPLAINT: Head Ache, neck pain HISTORY OF PRESENT ILLNESS: Patient is a 23-year-old female here with complaints of headache, neck pain with a recent history of a lumbar puncture by her neurologist in [place] several days ago. Patient reports that she had a high range cranial pressures were high fluid production and had some fluid drained. Patient reports neck pain, headache in the anteroseptal distribution. Patient does have paraspinal musculature which is ropey and fibrotic in the suboccipital region likely the cause of her current symptoms. Patient denies recent trauma, fevers, visual changes, inability to keep down food or fluids. REVIEW OF SYSTEMS: Constitutional: No fever, no chills. Eyes: No discharge. ENT: No sore throat. Cardiovascular: No chest pain, no palpitations. Respiratory: No cough, no shortness of breath. Gastrointestinal: No abdominal pain, no vomiting. Genitourinary: No hematuria. Musculoskeletal: No back pain. + Cervical neck pain Skin: No rashes. Neurological: + headache. Allergies: Coded Allergies: cat dander (Verified Allergy, Unknown, 04/04/19) Home Meds Active Scripts Acetazolamide (ACETAZOLAMIDE) 500 Mg Capsule.er, 500 MG PO BID, #60 TAB Prov:AALIYAH VICENTE DO 01/19/19 Reported Medications Topiramate (TOPAMAX) 50 Mg Tablet, 50 MG PO BID 04/04/19 Aripiprazole (ABILIFY) 5 Mg Tablet, 2.5 MG PO QDAY, #10 TAB 12/31/18 Discontinued Scripts Oxycodone Hcl/Acetaminophen (OXYCODONE-ACETAMINOPHEN 5-325) 1 Each Tablet, 1 EACH PO Q4-6H PRN for PAIN/HEADACHE, #15 TAB Prov:AALIYAH VICENTE DO 01/21/19 Hx Smoking: No Smoking Status: Never Smoker Exposure to Second Hand Smoke?: No Hx Substance Use Disorder: No Hx Alcohol Use: No Constitutional Vital Sign - Last 24 Hours 04/04/19 21:52 Temp 97.8 Pulse 84 Resp 16 B/P (MAP) 102/72 Pulse Ox 92 O2 Delivery Room Air Intake and Output 04/04/19 04/04/19 04/05/19 15:00 23:00 07:00 Intake Total 50 ml Balance 50 ml Physical Exam General Appearance: The patient is alert, has no immediate need for airway protection and no signs of toxicity. Uncomfortable appearing Eyes: Pupils equal and round no pallor or injection. ENT, Mouth: Mucous membranes are moist. Respiratory: There are no retractions, lungs are clear to auscultation. Cardiovascular: Regular rate and rhythm. Gastrointestinal: Abdomen is soft and non tender, no masses, bowel sounds normal. Neurological: No focal neurological deficits Skin: Warm and dry, no rashes. Musculoskeletal: Neck is supple and tender on palpation in the paraspinal musculature of the cervical spine. No nuchal rigidity, cranial nerves intact Extremities are nontender, nonswollen and have full range of motion. DIFFERENTIAL DIAGNOSIS: After history and physical exam differential diagnosis was considered for muscle spasm, neck strain, tension headache, migraine, trauma, electrolyte abnormality, dehydration Medical Decision Making Data Points Result Diagram: 04/04/19 2300 04/04/19 2300 Laboratory Hematology Test 04/04/19 23:00 Red Blood Count 4.37 M/uL (4.17-5.56) Mean Corpuscular Volume 87.8 fL (80.0-96.0) Mean Corpuscular Hemoglobin 29.8 pg (26.0-33.0) Mean Corpuscular Hemoglobin Concent 33.9 g/dL (32.0-36.0) Red Cell Distribution Width 13.5 % (11.5-14.5) Mean Platelet Volume 8.5 fL (7.2-11.1) Neutrophils (%) (Auto) 68.0 % (39.4-72.5) Lymphocytes (%) (Auto) 22.3 % (17.6-49.6) Monocytes (%) (Auto) 8.4 % (4.1-12.4) Eosinophils (%) (Auto) 0.8 % (0.4-6.7) Basophils (%) (Auto) 0.5 % (0.3-1.4) Nucleated RBC Relative Count (auto) 0.1 /100WBC Neutrophils # (Auto) 4.6 K/uL (2.0-7.4) Lymphocytes # (Auto) 1.5 K/uL (1.3-3.6) Monocytes # (Auto) 0.6 K/uL (0.3-1.0) Eosinophils # (Auto) 0.1 K/uL (0.0-0.5) Basophils # (Auto) 0.0 K/uL (0.0-0.1) Nucleated RBC Absolute Count (auto) 0.01 K/uL Erythrocyte Sedimentation Rate 18 mm/HOUR (0-20) Sodium Level 143 mmol/L (137-145) Potassium Level 3.4 mmol/L (3.5-5.0) Chloride Level 114 mmol/L (98-107) Carbon Dioxide Level 12 mmol/L (22-31) Blood Urea Nitrogen 12 mg/dl (7-18) Creatinine 0.90 mg/dl (0.52-1.04) Glomerular Filtration Rate Calc > 60.0 Random Glucose 96 mg/dl (75-110) Calcium Level 9.9 mg/dl (8.4-10.2) Total Bilirubin 0.5 mg/dl (0.2-1.3) Aspartate Amino Transf (AST/SGOT) 16 U/L (0-35) Alanine Aminotransferase (ALT/SGPT) 27 U/L (0-56) Alkaline Phosphatase 87 U/L (0-126) C-Reactive Protein 0.7 mg/dl (<1.0) Total Protein 7.5 g/dl (6.3-8.2) Albumin 4.7 g/dl (3.5-5.0) Chemistry Test 04/04/19 23:00 White Blood Count 6.8 k/uL (4.5-11.0) Red Blood Count 4.37 M/uL (4.17-5.56) Hemoglobin 13.0 g/dL (12.0-16.0) Hematocrit 38.3 % (34.0-47.0) Mean Corpuscular Volume 87.8 fL (80.0-96.0) Mean Corpuscular Hemoglobin 29.8 pg (26.0-33.0) Mean Corpuscular Hemoglobin Concent 33.9 g/dL (32.0-36.0) Red Cell Distribution Width 13.5 % (11.5-14.5) Platelet Count 290 K/uL (150-450) Mean Platelet Volume 8.5 fL (7.2-11.1) Neutrophils (%) (Auto) 68.0 % (39.4-72.5) Lymphocytes (%) (Auto) 22.3 % (17.6-49.6) Monocytes (%) (Auto) 8.4 % (4.1-12.4) Eosinophils (%) (Auto) 0.8 % (0.4-6.7) Basophils (%) (Auto) 0.5 % (0.3-1.4) Nucleated RBC Relative Count (auto) 0.1 /100WBC Neutrophils # (Auto) 4.6 K/uL (2.0-7.4) Lymphocytes # (Auto) 1.5 K/uL (1.3-3.6) Monocytes # (Auto) 0.6 K/uL (0.3-1.0) Eosinophils # (Auto) 0.1 K/uL (0.0-0.5) Basophils # (Auto) 0.0 K/uL (0.0-0.1) Nucleated RBC Absolute Count (auto) 0.01 K/uL Erythrocyte Sedimentation Rate 18 mm/HOUR (0-20) Glomerular Filtration Rate Calc > 60.0 Calcium Level 9.9 mg/dl (8.4-10.2) Total Bilirubin 0.5 mg/dl (0.2-1.3) Aspartate Amino Transf (AST/SGOT) 16 U/L (0-35) Alanine Aminotransferase (ALT/SGPT) 27 U/L (0-56) Alkaline Phosphatase 87 U/L (0-126) C-Reactive Protein 0.7 mg/dl (<1.0) Total Protein 7.5 g/dl (6.3-8.2) Albumin 4.7 g/dl (3.5-5.0) ED Course/Re-evaluation ED Course Patient is a 23-year-old female here with complaints of headache, neck pain with recent history of the lumbar puncture. Labs are unremarkable, ESR was normal, there is no leukocytosis. I performed trigger point injections to the suboccipital musculature bilaterally using methylprednisolone/bupivacaine 1-1. Patient was given IV fluid bolus, Valium, Toradol, Reglan, magnesium, Decadron with significant relief of symptoms. Physical exam is unremarkable. Cranial nerves are intact, there are no focal neurological findings on examination. Recommended close PCP follow-up. Return precautions provided. Procedure Trigger point injection: Point of maximum tenderness was identified in the suboccipital paraspinal musculature bilaterally with ropy, fibrotic musculature likely contributing to the patient's current headache symptoms. 40 mg of methylprednisolone in 1 mL, 1 mL of 0.5% bupivacaine were combined in a syringe and a milliliter of the combined substance was administered into bilateral points of maximum tenderness. Patient tolerated the procedure well. The site was initially cleaned using chlorhexidine, hemostasis was achieved, sterile bandages were placed at the sites of injection. Decision to Disposition Date: Apr 05, 2019 Decision to Disposition Time: 00:06 Depart Departure Latest Vital Signs Vital Signs Date Time Temp Pulse Resp B/P (MAP) Pulse Ox O2 Delivery O2 Flow Rate FiO2 04/04/19 21:52 97.8 84 16 102/72 92 Room Air Impression: Primary Impression: Headache Condition: Improved Disposition: HOME OR SELF-CARE Patient Instructions: Acute Headache (ED) Additional Instructions: Please drink plenty of water. Please take her medications as prescribed. Your labs today were unremarkable, electrolytes were stable. Please return promptly with worsening symptoms, fevers, visual changes, worsening neck pain, inability keep down food or fluids. LETI SAWYER DO Apr 04, 2019 21:53
[2019-04-04] MEDS ORDERED: TOPI-120 PO (21:56)
[2019-04-04] MEDS ORDERED: NS(*) 0.9% 1000 ML BAG 1,000 ML IV ONE (22:04)
[2019-04-04] MEDS ORDERED: METOCLOPRAMIDE 10 MG/2 ML SDV IVP ONE (22:05)
[2019-04-04] MEDS ORDERED: KETOROLAC 30 MG/ML VIAL IVP ONE (22:05)
[2019-04-04] MEDS ORDERED: DEXAMETHASONE SOD PHOS 10MG/ML IVP ONE (22:05)
[2019-04-04] MEDS ORDERED: MAGNESIUM SUL* 2 GM/50 ML IVPB 50 ML IVPB ONE (22:05)
[2019-04-04] MEDS ORDERED: methylPREDNIS ACE 40MG/ML VIAL IM ONLY ONE (22:10)
[2019-04-04] MEDS: DIAZEPAM 50 MG/10 ML MDV IVP ONE ×2 (22:40→22:41)
[2019-04-04 23:15] LABS: PLATELET COUNT, AUTOMATED 290 K/uL (150-450)
[2019-04-05] VITALS: BP 116/59
[2019-04-06] MEDS ORDERED: DIA5 PO (14:25)
[2019-04-06] MEDS ORDERED: ONDA4TAB9 PO (14:25)
[2019-04-06] MEDS ORDERED: KET10 PO (14:25)
== END 2019-04-05 00:15 | disposition home or self-care (01) ==
LOC: ER 22:30
DX: R51 Headache (principal)
CPT/HCPCS: 20552; 36415; 85025; 85651; 86140; 96365; 96375; 99284; J1030; J1100; J1885; J2765; J3360; J3475; J7030; 82040; 82247; 82310; 82374; 82435; 82565; 82947; 84075; 84132; 84155; 84295; 84450; 84460; 84520

== ENCOUNTER 2019-04-06 11:49 | Emergency (ER) | payer OTHER ==
[2018-05-27 18:30] VITALS: Wt 108.9 kg
[~2019-04-06 11:49] MED LIST changes: +TOPI-120 PO
--- NOTE | 2019-04-06 12:00 | ER Report ---
History and Physical Time Seen By MD: 12:00 Hx. of Stated Complaint: LP on Monday last week for benign hypertension. neck pain worse since then HPI/ROS CHIEF COMPLAINT: Neck pain HISTORY OF PRESENT ILLNESS: 23 year old female presents to ED with recurrent neck and lower occipital pain. Patient has hx of idiopathic increased intracranial pressure. She received a lumbar tap to pull off cerebrospinal fluid on Monday. Since that time she has had headaches, neck pain, neck muscle spasms, and occipital headache pain. She has also experienced nausea, vomiting, w eakness, decreased appetite, and little sleep. She presented to the ED earlier this week for the pain. She was treated with relief of the pain and sent home. Since that time, the neck pain, stiffness, and occipital pain has returned. Rates pain a 10/10. At home, patient has been taking ibuprofen and tylenol for pain with no relief. REVIEW OF SYSTEMS: Constitutional: Reports decreased appetite. No fever. HENT: No blurry vision, no dizziness. Respiratory: Reports dyspnea. No cough. Cardiovascular: No chest pain, no palpitations. Gastrointestinal: Reports nausea and vomiting. Musculoskeletal: neck pain that radiates to her occiput. Allergies: Coded Allergies: cat dander (Verified Allergy, Unknown, 04/06/19) Home Meds Active Scripts Diazepam (VALIUM) 5 Mg Tablet, 5 MG PO 3 times a day PRN for PAIN, #15 TAB Prov:MICHELLE MONROE [facility] 04/06/19 Ondansetron 4 Mg Odt (ONDANSETRON 4 MG ODT) 4 Mg Tab.rapdis, 4 MG PO Q6H PRN for NAUSEA/VOMITING, #20 TAB Prov:MICHELLE MONROE 04/06/19 Ketorolac Tromethamine (KETOROLAC TROMETHAMINE) 10 Mg Tab, 10 MG PO Q6H, #20 TAB Prov:MICHELLE MONROE [employer] 04/06/19 Acetazolamide (ACETAZOLAMIDE) 500 Mg Capsule.er, 500 MG PO BID, #60 TAB Prov:AALIYAH VICENTE DO 01/19/19 Reported Medications Topiramate (TOPAMAX) 50 Mg Tablet, 50 MG PO BID 04/04/19 Aripiprazole (ABILIFY) 5 Mg Tablet, 2.5 MG PO QDAY, #10 TAB 12/31/18 Discontinued Scripts Oxycodone Hcl/Acetaminophen (OXYCODONE-ACETAMINOPHEN 5-325) 1 Each Tablet, 1 EACH PO Q4-6H PRN for PAIN/HEADACHE, #15 TAB Prov:AALIYAH VICENTE DO 01/21/19 Past Medical/Surgical History Past medical hx of migraines, pseudotumor cerebri, depression. Past surgical hx of cholecystectomy and tonsillectomy. Reviewed Nurses Notes: Yes Hx Smoking: No Smoking Status: Never Smoker Exposure to Second Hand Smoke?: No Hx Substance Use Disorder: No Hx Alcohol Use: No Constitutional Vital Sign - Last 24 Hours 04/06/19 04/06/19 04/06/19 04/06/19 11:55 12:00 12:19 12:30 Temp 97.6 Pulse 67 81 62 Resp 20 10 18 B/P (MAP) 119/57 104/66 (79) 105/69 (81) Pulse Ox 97 100 97 O2 Delivery Room Air 04/06/19 04/06/19 04/06/19 04/06/19 13:00 13:30 14:00 14:40 Pulse 53 65 53 Resp 14 13 23 B/P (MAP) 101/53 (69) 104/75 (85) 103/48 (66) 109/79 (89) Physical Exam General Appearance: The patient is alert, has no immediate need for airway protection and no current signs of toxicity. Eyes: Pupils equal and round no injection. Respiratory: Chest is non tender, lungs are clear to auscultation. Cardiac: regular rate and rhythm Gastrointestinal: Abdomen is soft and non tender, no masses, bowel sounds normal. Musculoskeletal: Neck: Neck is tender to palpation. Right trapezius muscle tight. Left paraspinal muscle tight. Limited ROM of neck. Negative Kernig and Brudenzki sign. Neuro: Extraocular movements intact. Negative pronator drift. CN7 intact. Skin: No rashes or lesions. DIFFERENTIAL DIAGNOSIS: After history and physical exam differential diagnosis was considered for muscle spasm, spinal fluid headache, anxiety. Medical Decision Making ED Course/Re-evaluation ED Course Upon arrival to the ED patient admitted to an exam room, hx and physical ob tained, differentials considered. Patient presents with recurrent neck and lower occipital pain. Patient has hx of idiopathic increased intracranial pressure. She received a lumbar tap to pull off cerebrospinal fluid on Monday. Since that time she has had headaches, neck pain, neck muscle spasms, and occipital headache pain. She has also experienced nausea, vomiting, weakness, decreased appetite, and little sleep. She presented to the ED earlier this week for the pain. She was treated with relief of the pain and sent home. Since that time, the neck pain, stiffness, and occipital pain has returned. Rates pain a 10/10. At home, patient has been taking ibuprofen and tylenol for pain with no relief. On exam, lungs are clear, heart is normal, neuro is intact. Neck is tender to palpation. Right trapezius muscle tight. Left paraspinal muscle tight. Limited ROM of neck. Negative Bruzinski sign and Kernig sign. IV started, 1000ml NS infused. 12.5 mg phenergan, 5mg valium, and 30mg ketorolac given IV. After approximately 30 minutes, patient rates pain an 8 out of 10. At this time patient appears relaxed, upon palpation of the muscles, they are less tight. Discussed with patient about going home with valium, toradol, and zofran for pain and nausea. She is to follow-up with her neurologist on Monday. Patient agrees with plan of care and will return for any worsening symptoms. Decision to Disposition Date: Apr 06, 2019 Decision to Disposition Time: 14:28 Depart Departure Latest Vital Signs Vital Signs Date Time Temp Pulse Resp B/P (MAP) Pulse Ox O2 Delivery O2 Flow Rate FiO2 04/06/19 14:40 109/79 (89) 04/06/19 14:00 53 23 04/06/19 12:30 97 04/06/19 11:55 97.6 Room Air Impression: Primary Impression: Neck tightness Condition: Improved Disposition: HOME OR SELF-CARE New Scripts Diazepam (VALIUM) 5 Mg Tablet 5 MG PO 3 times a day PRN for PAIN, #15 TAB Prov: MICHELLE MONROE 04/06/19 Ondansetron 4 Mg Odt (ONDANSETRON 4 MG ODT) 4 Mg Tab.rapdis 4 MG PO Q6H PRN for NAUSEA/VOMITING, #20 TAB Prov: MICHELLE MONROE 04/06/19 Ketorolac Tromethamine (KETOROLAC TROMETHAMINE) 10 Mg Tab 10 MG PO Q6H, #20 TAB Prov: MICHELLE MONROE 6/8/19 Patient Instructions: General Anesthesia (GEN) Additional Instructions: Melvi drink plenty of water and get plenty of rest. You may take valium up to three times a day, spread out over the day as needed for neck pain. You may take toradol as prescribed for pain. You may take sheri as needed for nausea. Keep your appointment with your neurologist for Monday. Return to the ER with worsening headache, especially if it is the worst headache of your life. Return to the ER if you have chest pain, any difficultly breathing, or for any other concern. MICHELLE MONROE Apr 06, 2019 12:00
[2019-04-06] MEDS ORDERED: DIAZEPAM 50 MG/10 ML MDV IVP ONE (12:15)
[2019-04-06] MEDS ORDERED: PROMETHAZINE 25 MG/ML 1 ML AMP IVP ONE (12:15)
[2019-04-06] MEDS ORDERED: NS(*) 0.9% 1000 ML BAG 1,000 ML IV ONE (12:15)
[2019-04-06] MEDS ORDERED: KETOROLAC 30 MG/ML VIAL IVP ONE (12:15)
[2019-04-06] MEDS ORDERED: DIA5 PO (14:25)
[2019-04-06] MEDS ORDERED: ONDA4TAB9 PO (14:25)
[2019-04-06] MEDS ORDERED: KET10 PO (14:25)
[2019-04-06 14:40] VITALS: BP 109/79
== END 2019-04-06 14:37 | disposition home or self-care (01) ==
LOC: ER 11:57
DX: M54.2 Cervicalgia (principal)
CPT/HCPCS: 96361; 96374; 96375; 99284; J1885; J2550; J3360; J7030